=== PATIENT | female | born 1945 | race Caucasian/White ===

== ENCOUNTER → 2016-12-18 | Outpatient (REF) | payer MEDICARE | LOC: M LABNEURO 13:03 | PROVIDERS: ATTEND Internal Medicine | DX: R30.0 Dysuria (principal) ==

== ENCOUNTER → 2017-01-29 | Outpatient (REF) | payer MEDICARE ==
[2017-01-29 15:57] LABS: CALCIUM LEVEL 9.6 MG/DL (8.8-10.2)
== END ==
LOC: M LABNEURO 10:25
PROVIDERS: ATTEND Physician Assistant Medical
DX: M81.8 Other osteoporosis without current pathological fracture (principal); E55.9 Vitamin D deficiency, unspecified

== ENCOUNTER → 2017-03-27 | Outpatient (CLI) | payer MEDICARE ==
[2017-03-27 12:34] LABS: ABG pH (ARTERIAL) 7.471 UNITS (7.350-7.450)
[2017-03-27 12:36] LABS: ABG BASE EXCESS 1.4 (-2.0-2.0); ABG HCO3 24.5 MEQ/L (22.0-26.0); ABG PARTIAL PRESSURE CO2 34.3 mmHg (35.0-45.0); ABG PARTIAL PRESSURE O2 117.6 mmHg (75.0-100.0); ABG STANDARD HCO3 25.7 MEQ/L (22.0-26.0); ABG TOTAL CO2 25.5 MEQ/L (23.0-31.0)
== END ==
LOC: M LAB 12:04
PROVIDERS: ATTEND Internal Medicine Pulmonary Disease
DX: R94.2 Abnormal results of pulmonary function studies (principal)

== ENCOUNTER → 2017-04-12 | Outpatient (REF) | payer MEDICARE ==
[2017-04-12 14:59] LABS: BLOOD UREA NITROGEN 24 MG/DL (7-18); CREATININE FOR GFR 0.73 MG/DL (0.55-1.02); GLOMERULAR FILTRATION RATE > 60.0 (>39)
== END ==
LOC: M LABNEURO 13:24
PROVIDERS: ATTEND Psychiatry & Neurology Neurology
DX: G35 Multiple sclerosis (principal)

== ENCOUNTER → 2017-04-18 | Outpatient (REF) | payer MEDICARE | LOC: M LAB REF 12:47 | PROVIDERS: ATTEND Internal Medicine | DX: N39.0 Urinary tract infection, site not specified (principal) ==

== ENCOUNTER → 2017-05-07 | Outpatient (REF) | payer MEDICARE ==
[2017-05-07 14:31] LABS: CALCIUM LEVEL 10.1 MG/DL (8.8-10.2)
== END ==
LOC: M LABNEURO 13:28
PROVIDERS: ATTEND Physician Assistant Medical
DX: M81.8 Other osteoporosis without current pathological fracture (principal); E55.9 Vitamin D deficiency, unspecified

== ENCOUNTER → 2017-07-17 | Outpatient (REF) | payer MEDICARE | LOC: M LAB REF 17:21 | PROVIDERS: ATTEND Nurse Practitioner Family | DX: N39.0 Urinary tract infection, site not specified (principal) ==

== ENCOUNTER → 2017-07-20 | Outpatient (REF) | payer MEDICARE | LOC: M LAB REF 15:03 | PROVIDERS: ATTEND Nurse Practitioner Family | DX: N76.0 Acute vaginitis (principal); J02.9 Acute pharyngitis, unspecified ==

== ENCOUNTER → 2017-08-06 | Outpatient (REF) | payer MEDICARE | LOC: M LAB REF 10:35 | PROVIDERS: ATTEND Nurse Practitioner Family | DX: N76.0 Acute vaginitis (principal) ==

== ENCOUNTER → 2017-08-07 | Outpatient (REF) | payer MEDICARE | LOC: M LAB REF 09:51 | PROVIDERS: ATTEND Nurse Practitioner Family | DX: R19.7 Diarrhea, unspecified (principal) ==

== ENCOUNTER → 2017-10-17 | Outpatient (CLI) | payer MEDICARE ==
[2017-10-17 17:56] LABS: BASO % 0.7 % (0.0-1.0); EOS # 0.1 10^3/uL (0.0-0.50); EOS % 2.3 % (0.0-3.0); IMMATURE GRANULOCYTE % 0.2 % (0-0); LYMPH # 2.3 10^3/uL (1.5-4.5); LYMPH % 39.9 % (24.0-44.0); MEAN CORPUSCULAR HEMOGLOBIN 32.8 pg (27.0-33.0); MEAN CORPUSCULAR HGB CONC 32.9 g/dl (32.0-36.5); MEAN CORPUSCULAR VOLUME 99.8 fl (80.0-96.0); MONO # 0.4 10^3/uL (0.0-0.8); MONO % 7.7 % (0.0-5.0); NEUTROPHILS # 2.8 10^3/uL (1.8-7.7); NEUTROPHILS % 49.2 % (36.0-66.0); PLATELET COUNT, AUTOMATED 266 10^3/uL (150-450); RED CELL DISTRIBUTION WIDTH 13.2 % (11.5-14.5); WHITE BLOOD COUNT 5.7 10^3/uL (4.0-10.0)
[2017-10-17 19:49] LABS: BLOOD UREA NITROGEN 20 MG/DL (7-18); CREATININE FOR GFR 0.66 MG/DL (0.55-1.02); GLOMERULAR FILTRATION RATE > 60.0 (>39)
== END ==
LOC: M LABNEURO 11:35
PROVIDERS: ATTEND Psychiatry & Neurology Neurology
DX: I10 Essential (primary) hypertension (principal)

== ENCOUNTER → 2018-01-28 | Outpatient (REF) | payer MEDICARE | LOC: M LAB REF 11:52 | DX: N76.89 Other specified inflammation of vagina and vulva (principal) | CPT/HCPCS: 87205 ==

== ENCOUNTER → 2018-03-01 | Outpatient (REF) | payer MEDICARE ==
[2018-03-01 18:30] LABS: APPEARANCE, URINE HAZY (CLEAR); BACTERIA, URINE AUTO NEGATIVE (NEGATIVE); BILIRUBIN, URINE AUTO NEGATIVE (NEGATIVE); BLOOD, URINE BLOOD NEGATIVE (NEGATIVE); COLOR, URINE YELLOW (YELLOW); GLUCOSE, URINE (UA) AUTO NEGATIVE (NEGATIVE); KETONE, URINE AUTO NEGATIVE (NEGATIVE); LEUKOCYTE ESTERASE, URINE AUTO NEGATIVE (NEGATIVE); MUCUS, URINE SMALL (NEGATIVE); NITRITE, URINE AUTO NEGATIVE (NEGATIVE); PROTEIN, URINE AUTO NEGATIVE (NEGATIVE); RBC, URINE AUTO 1 /HPF (0-3); SPECIFIC GRAVITY URINE AUTO 1.008 (1.002-1.035); SQUAMOUS EPITHELIAL CELL UR AU 8 /HPF (0-6); UROBILINOGEN, URINE AUTO 0.2 mg/dL (0.0-2.0); WBC, URINE AUTO 1 /HPF (0-3)
== END ==
LOC: M LAB REF 16:14
DX: N39.0 Urinary tract infection, site not specified (principal)
CPT/HCPCS: 81001

== ENCOUNTER → 2018-03-11 | Outpatient (REF) | payer MEDICARE ==
[2018-03-11 19:22] LABS: CHLAMYDIA DNA AMPLIFICATION NEGATIVE (NEGATIVE); GC DNA AMPLIFICATION NEGATIVE (NEGATIVE)
== END ==
LOC: M LAB REF 16:25
DX: N76.0 Acute vaginitis (principal); Z11.3 Encounter for screening for infections with a predominantly sexual mode of transmission
CPT/HCPCS: 87591

== ENCOUNTER → 2018-03-15 | Outpatient (REF) | payer MEDICARE ==
[2018-03-15 13:22] LABS: BASO % 0.8 % (0.0-1.0); EOS # 0.1 10^3/uL (0.0-0.50); HEMATOCRIT 39.8 % (36.0-47.0); HEMOGLOBIN 13.2 g/dl (12.0-15.5); IMMATURE GRANULOCYTE % 0.2 % (0-3.0); LYMPH # 1.7 10^3/uL (1.5-4.5); LYMPH % 35.3 % (24.0-44.0); MEAN CORPUSCULAR HEMOGLOBIN 32.3 pg (27.0-33.0); MEAN CORPUSCULAR HGB CONC 33.2 g/dl (32.0-36.5); MEAN CORPUSCULAR VOLUME 97.3 fl (80.0-96.0); MONO # 0.4 10^3/uL (0.0-0.8); MONO % 7.4 % (0.0-5.0); NEUTROPHILS # 2.7 10^3/uL (1.8-7.7); NEUTROPHILS % 55.3 % (36.0-66.0); PLATELET COUNT, AUTOMATED 284 10^3/uL (150-450); RED BLOOD COUNT 4.09 10^6/uL (4.00-5.40); RED CELL DISTRIBUTION WIDTH 12.7 % (11.5-14.5); WHITE BLOOD COUNT 4.8 10^3/uL (4.0-10.0)
[2018-03-15 13:26] LABS: APPEARANCE, URINE CLEAR (CLEAR); BACTERIA, URINE AUTO NEGATIVE (NEGATIVE); BILIRUBIN, URINE AUTO NEGATIVE (NEGATIVE); BLOOD, URINE BLOOD NEGATIVE (NEGATIVE); COLOR, URINE YELLOW (YELLOW); GLUCOSE, URINE (UA) AUTO NEGATIVE (NEGATIVE); KETONE, URINE AUTO NEGATIVE (NEGATIVE); LEUKOCYTE ESTERASE, URINE AUTO NEGATIVE (NEGATIVE); NITRITE, URINE AUTO NEGATIVE (NEGATIVE); PROTEIN, URINE AUTO NEGATIVE (NEGATIVE); RBC, URINE AUTO 1 /HPF (0-3); SPECIFIC GRAVITY URINE AUTO 1.011 (1.002-1.035); SQUAMOUS EPITHELIAL CELL UR AU 1 /HPF (0-6); UROBILINOGEN, URINE AUTO 0.2 mg/dL (0.0-2.0); WBC, URINE AUTO 0 /HPF (0-3)
[2018-03-15 13:37] LABS: ALBUMIN 4.1 GM/DL (3.2-5.2); ALBUMIN/GLOBULIN RATIO 1.32 (1.00-1.93); ALKALINE PHOSPHATASE 107 U/L (45-117); ALT/SGPT 18 U/L (12-78); ANION GAP 7 MEQ/L (8-16); AST/SGOT 13 U/L (7-37); BILIRUBIN,TOTAL 0.6 MG/DL (0.2-1.0); BLOOD UREA NITROGEN 20 MG/DL (7-18); CALCIUM LEVEL 9.5 MG/DL (8.8-10.2); CARBON DIOXIDE LEVEL 27 MEQ/L (21-32); CHLORIDE LEVEL 104 MEQ/L (98-107); CREATININE FOR GFR 0.63 MG/DL (0.55-1.30); GLOMERULAR FILTRATION RATE > 60.0 (>39); GLUCOSE, FASTING 103 MG/DL (70-100); POTASSIUM SERUM 4.5 MEQ/L (3.5-5.1); SODIUM LEVEL 138 MEQ/L (136-145); TOTAL PROTEIN 7.2 GM/DL (6.4-8.2)
== END ==
LOC: M LABNEURO 10:25
DX: G35 Multiple sclerosis (principal)
CPT/HCPCS: 80053

== ENCOUNTER 2018-03-27 16:07 | Outpatient (CLI) | payer MEDICARE ==
[2018-03-27] MEDS: methylPREDNISolone 1,000 MG, VIAL MATE ADAPTER 1 EACH in D5W 250 ML IV (16:36)
== END 2018-03-27 18:00 | disposition home or self-care (01) ==
LOC: M INFU 16:07
DX: G35 Multiple sclerosis (principal); K21.9 Gastro-esophageal reflux disease without esophagitis; K44.9 Diaphragmatic hernia without obstruction or gangrene; I10 Essential (primary) hypertension; E78.00 Pure hypercholesterolemia, unspecified; I48.91 Unspecified atrial fibrillation; G47.30 Sleep apnea, unspecified; Z79.899 Other long term (current) drug therapy; Z88.0 Allergy status to penicillin; Z88.5 Allergy status to narcotic agent; Z88.8 Allergy status to other drugs, medicaments and biological substances; Z90.711 Acquired absence of uterus with remaining cervical stump; Z87.442 Personal history of urinary calculi; Z90.49 Acquired absence of other specified parts of digestive tract
CPT/HCPCS: J2930

== ENCOUNTER 2018-03-28 14:52 | Outpatient (CLI) | payer MEDICARE ==
[2018-03-28] MEDS: methylPREDNISolone 1,000 MG, VIAL MATE ADAPTER 1 EACH in D5W 250 ML IV (15:26)
== END 2018-03-28 16:40 | disposition home or self-care (01) ==
LOC: M INFU 14:52
DX: G35 Multiple sclerosis (principal); I48.91 Unspecified atrial fibrillation; I10 Essential (primary) hypertension; E78.00 Pure hypercholesterolemia, unspecified; G47.30 Sleep apnea, unspecified; K21.9 Gastro-esophageal reflux disease without esophagitis; K44.9 Diaphragmatic hernia without obstruction or gangrene; Z79.899 Other long term (current) drug therapy; Z88.0 Allergy status to penicillin; Z88.5 Allergy status to narcotic agent; Z88.8 Allergy status to other drugs, medicaments and biological substances; Z90.710 Acquired absence of both cervix and uterus; Z90.49 Acquired absence of other specified parts of digestive tract
CPT/HCPCS: J2930

== ENCOUNTER 2018-03-29 11:54 | Outpatient (CLI) | payer MEDICARE ==
[2018-03-29] MEDS: methylPREDNISolone 1,000 MG, VIAL MATE ADAPTER 1 EACH in D5W 250 ML IV (12:14)
== END 2018-03-29 13:25 | disposition home or self-care (01) ==
LOC: M INFU 11:54
DX: G35 Multiple sclerosis (principal); I10 Essential (primary) hypertension; E78.00 Pure hypercholesterolemia, unspecified; G47.30 Sleep apnea, unspecified; I48.91 Unspecified atrial fibrillation; K21.9 Gastro-esophageal reflux disease without esophagitis; K44.9 Diaphragmatic hernia without obstruction or gangrene; Z79.899 Other long term (current) drug therapy; Z88.0 Allergy status to penicillin; Z88.8 Allergy status to other drugs, medicaments and biological substances; Z88.1 Allergy status to other antibiotic agents; Z88.5 Allergy status to narcotic agent; Z90.710 Acquired absence of both cervix and uterus; Z90.49 Acquired absence of other specified parts of digestive tract; Z90.10 Acquired absence of unspecified breast and nipple
CPT/HCPCS: J2930

== ENCOUNTER 2018-03-30 09:39 | Outpatient (CLI) | payer MEDICARE ==
[2018-03-30] MEDS: methylPREDNISolone 1,000 MG, VIAL MATE ADAPTER 1 EACH in D5W 250 ML IV (10:00)
== END 2018-03-30 11:20 | disposition home or self-care (01) ==
LOC: M OPCLI4PR 09:39 → M PED 09:41 → M OPCLI4PR 11:20
DX: G35 Multiple sclerosis (principal)
CPT/HCPCS: J2930

== ENCOUNTER 2018-03-30 19:33 | Emergency (ER) | payer MEDICARE ==
[2018-03-30 20:29] LABS: BASO % 0.1 % (0.0-1.0); HEMATOCRIT 38.3 % (36.0-47.0); HEMOGLOBIN 12.9 g/dl (12.0-15.5); IMMATURE GRANULOCYTE % 0.9 % (0-3.0); LYMPH # 0.5 10^3/uL (1.5-4.5); LYMPH % 4.6 % (24.0-44.0); MEAN CORPUSCULAR HEMOGLOBIN 32.5 pg (27.0-33.0); MEAN CORPUSCULAR HGB CONC 33.7 g/dl (32.0-36.5); MEAN CORPUSCULAR VOLUME 96.5 fl (80.0-96.0); MONO # 0.1 10^3/uL (0.0-0.8); MONO % 1.1 % (0.0-5.0); NEUTROPHILS # 10.7 10^3/uL (1.8-7.7); NEUTROPHILS % 93.3 % (36.0-66.0); PLATELET COUNT, AUTOMATED 248 10^3/uL (150-450); RED BLOOD COUNT 3.97 10^6/uL (4.00-5.40); WHITE BLOOD COUNT 11.4 10^3/uL (4.0-10.0)
[2018-03-30 20:47] LABS: ANION GAP 9 MEQ/L (8-16); BLOOD UREA NITROGEN 28 MG/DL (7-18); CALCIUM LEVEL 9.2 MG/DL (8.8-10.2); CARBON DIOXIDE LEVEL 26 MEQ/L (21-32); CHLORIDE LEVEL 107 MEQ/L (98-107); CPK CREATINE PHOSPHOKINASE 46 U/L (26-192); GLOMERULAR FILTRATION RATE > 60.0 (>39); GLUCOSE, FASTING 186 MG/DL (70-100); POTASSIUM SERUM 4.1 MEQ/L (3.5-5.1); SODIUM LEVEL 142 MEQ/L (136-145); TROPONIN I < 0.02 NG/ML (< 0.10)
[2018-03-30 20:48] LABS: CK-MB VALUE MASS 2.5 NG/ML (<3.6); MB/CK RELATIVE INDEX 5.43 (< OR =4)
[2018-03-30] MEDS: VERAPAMIL HCL 5 MG/2 ML VIAL IV (20:56)
[2018-03-30] MEDS: NS 1,000 ML IV (20:57)
[2018-03-30 21:02] LABS: INR 1.72; PROTHROMBIN TIME 20.7 SECONDS (12.4-14.5)
[2018-03-30 21:05] LABS: ALBUMIN 3.7 GM/DL (3.2-5.2); ALBUMIN/GLOBULIN RATIO 1.09 (1.00-1.93); ALKALINE PHOSPHATASE 96 U/L (45-117); ALT/SGPT 41 U/L (12-78); AST/SGOT 24 U/L (7-37); BILIRUBIN,DIRECT 0.1 MG/DL (0.0-0.2); BILIRUBIN,TOTAL 0.4 MG/DL (0.2-1.0); TOTAL PROTEIN 7.1 GM/DL (6.4-8.2)
== END 2018-03-30 22:08 | disposition home or self-care (01) ==
LOC: M ED 19:33
DX: I48.91 Unspecified atrial fibrillation (principal); F41.9 Anxiety disorder, unspecified; G35 Multiple sclerosis; Z79.01 Long term (current) use of anticoagulants; Z98.890 Other specified postprocedural states; Z79.899 Other long term (current) drug therapy; Z79.51 Long term (current) use of inhaled steroids; Z82.49 Family history of ischemic heart disease and other diseases of the circulatory system; Z88.5 Allergy status to narcotic agent; Z88.8 Allergy status to other drugs, medicaments and biological substances; Z88.0 Allergy status to penicillin; Z88.2 Allergy status to sulfonamides; Z88.1 Allergy status to other antibiotic agents
CPT/HCPCS: 71045

== ENCOUNTER 2018-04-05 19:39 | Emergency (ER) | payer MEDICARE ==
[2018-04-05 21:19] LABS: BASO % 0.1 % (0.0-1.0); EOS # 0.1 10^3/uL (0.0-0.50); EOS % 0.8 % (0.0-3.0); HEMATOCRIT 43.8 % (36.0-47.0); HEMOGLOBIN 14.8 g/dl (12.0-15.5); IMMATURE GRANULOCYTE % 0.6 % (0-3.0); LYMPH # 1.9 10^3/uL (1.5-4.5); LYMPH % 17.7 % (24.0-44.0); MEAN CORPUSCULAR HEMOGLOBIN 32.3 pg (27.0-33.0); MEAN CORPUSCULAR HGB CONC 33.8 g/dl (32.0-36.5); MEAN CORPUSCULAR VOLUME 95.6 fl (80.0-96.0); MONO # 0.4 10^3/uL (0.0-0.8); NEUTROPHILS # 8.1 10^3/uL (1.8-7.7); NEUTROPHILS % 76.8 % (36.0-66.0); PLATELET COUNT, AUTOMATED 291 10^3/uL (150-450); RED BLOOD COUNT 4.58 10^6/uL (4.00-5.40); RED CELL DISTRIBUTION WIDTH 13.1 % (11.5-14.5); WHITE BLOOD COUNT 10.6 10^3/uL (4.0-10.0)
[2018-04-05 21:40] LABS: INR 1.07; PARTIAL THROMBOPLASTIN TIME 25.8 SECONDS (26.8-37.9); PROTHROMBIN TIME 14.1 SECONDS (12.4-14.5)
[2018-04-05 21:42] LABS: ANION GAP 7 MEQ/L (8-16); BLOOD UREA NITROGEN 26 MG/DL (7-18); CALCIUM LEVEL 9.6 MG/DL (8.8-10.2); CARBON DIOXIDE LEVEL 29 MEQ/L (21-32); CHLORIDE LEVEL 104 MEQ/L (98-107); CPK CREATINE PHOSPHOKINASE 43 U/L (26-192); CREATININE FOR GFR 0.74 MG/DL (0.55-1.30); FREE T4 1.32 NG/DL (0.76-1.46); GLOMERULAR FILTRATION RATE > 60.0 (>39); GLUCOSE, FASTING 153 MG/DL (70-100); POTASSIUM SERUM 3.8 MEQ/L (3.5-5.1); SODIUM LEVEL 140 MEQ/L (136-145); TROPONIN I < 0.02 NG/ML (< 0.10)
[2018-04-05 21:48] LABS: CK-MB VALUE MASS 2.3 NG/ML (<3.6); MB/CK RELATIVE INDEX 5.34 (< OR =4); NT-PRO BNP 2028 PG/ML (<125)
[2018-04-06] MEDS: ACETAMINOPHEN TAB 650MG DOSE (2X325MG) PO (00:18)
[2018-04-06] MEDS ORDERED: ISOVUE-370 76% 100ML VIAL (Q9967) As Ordered (00:43)
[2018-04-06 02:13] LABS: CPK CREATINE PHOSPHOKINASE 31 U/L (26-192); MB/CK RELATIVE INDEX 6.45 (< OR =4); TROPONIN I < 0.02 NG/ML (< 0.10)
== END 2018-04-06 02:48 | disposition home or self-care (01) ==
LOC: M ED 04-06 02:48
DX: I48.91 Unspecified atrial fibrillation (principal); I10 Essential (primary) hypertension; R07.9 Chest pain, unspecified; E78.5 Hyperlipidemia, unspecified; G35 Multiple sclerosis; Z85.3 Personal history of malignant neoplasm of breast; Z90.49 Acquired absence of other specified parts of digestive tract; Z90.10 Acquired absence of unspecified breast and nipple; Z82.49 Family history of ischemic heart disease and other diseases of the circulatory system; I51.7 Cardiomegaly; Z79.899 Other long term (current) drug therapy; Z88.5 Allergy status to narcotic agent; Z88.8 Allergy status to other drugs, medicaments and biological substances; Z88.0 Allergy status to penicillin; Z88.2 Allergy status to sulfonamides; Z88.1 Allergy status to other antibiotic agents
CPT/HCPCS: Q9967

== ENCOUNTER → 2018-06-12 | Outpatient (REF) | payer MEDICARE | LOC: M LAB REF 11:35 | DX: R19.7 Diarrhea, unspecified (principal) | CPT/HCPCS: 87507 ==

== ENCOUNTER → 2018-06-19 | Outpatient (REF) | payer MEDICARE ==
[2018-06-19 12:48] LABS: BASO # 0.1 10^3/uL (0.0-0.2); BASO % 0.9 % (0.0-1.0); EOS # 0.2 10^3/uL (0.0-0.50); EOS % 3.3 % (0.0-3.0); HEMATOCRIT 38.7 % (36.0-47.0); HEMOGLOBIN 12.9 g/dl (12.0-15.5); IMMATURE GRANULOCYTE % 0.2 % (0-3.0); LYMPH # 2.7 10^3/uL (1.5-4.5); LYMPH % 47.9 % (24.0-44.0); MEAN CORPUSCULAR HEMOGLOBIN 32.6 pg (27.0-33.0); MEAN CORPUSCULAR HGB CONC 33.3 g/dl (32.0-36.5); MEAN CORPUSCULAR VOLUME 97.7 fl (80.0-96.0); MONO # 0.4 10^3/uL (0.0-0.8); MONO % 7.2 % (0.0-5.0); NEUTROPHILS # 2.3 10^3/uL (1.8-7.7); NEUTROPHILS % 40.5 % (36.0-66.0); PLATELET COUNT, AUTOMATED 231 10^3/uL (150-450); RED BLOOD COUNT 3.96 10^6/uL (4.00-5.40); RED CELL DISTRIBUTION WIDTH 13.4 % (11.5-14.5); WHITE BLOOD COUNT 5.7 10^3/uL (4.0-10.0)
[2018-06-19 13:10] LABS: TOTAL 25(OH) VITAMIN D 21.8 NG/ML (30.0-100.0)
[2018-06-19 13:13] LABS: ALBUMIN 3.8 GM/DL (3.2-5.2); ALBUMIN/GLOBULIN RATIO 1.27 (1.00-1.93); ALKALINE PHOSPHATASE 95 U/L (45-117); ALT/SGPT 21 U/L (12-78); ANION GAP 10 MEQ/L (8-16); AST/SGOT 17 U/L (7-37); BILIRUBIN,TOTAL 0.8 MG/DL (0.2-1.0); BLOOD UREA NITROGEN 22 MG/DL (7-18); CALCIUM LEVEL 9.3 MG/DL (8.8-10.2); CARBON DIOXIDE LEVEL 28 MEQ/L (21-32); CHLORIDE LEVEL 107 MEQ/L (98-107); CHOLESTEROL LEVEL 224 MG/DL (<200); CHOLESTEROL RISK RATIO 1.964 (<5); CREATININE FOR GFR 0.62 MG/DL (0.55-1.30); FERRITIN 39 NG/ML (8-252); FREE T4 1.09 NG/DL (0.76-1.46); GLOMERULAR FILTRATION RATE > 60.0 (>39); GLUCOSE, FASTING 98 MG/DL (70-100); HDL CHOLESTEROL 114 MG/DL (>40); IRON (FE) 94 UG/DL (50-170); LDL CHOLESTEROL 88.2 MG/DL (<100); NON-HDL-C 110 MG/DL; PERCENT SATURATION 26.2 % (13.2-45.0); POTASSIUM SERUM 3.8 MEQ/L (3.5-5.1); SODIUM LEVEL 145 MEQ/L (136-145); THYROID STIMULATING HORMONE 0.965 uIU/ML (0.358-3.740); TOTAL IRON BINDING CAPACITY 359 UG/DL (250-450); TOTAL PROTEIN 6.8 GM/DL (6.4-8.2); TRIGLYCERIDES LEVEL 109 MG/DL (<150)
[2018-06-19 13:35] LABS: ESTIMATED AVERAGE GLUCOSE 117 MG/DL (60-110); HEMOGLOBIN A1c 5.7 %
== END ==
LOC: M LABNEURO 08:13
DX: E78.00 Pure hypercholesterolemia, unspecified (principal); E55.9 Vitamin D deficiency, unspecified; D64.9 Anemia, unspecified; Z79.899 Other long term (current) drug therapy
CPT/HCPCS: 83550

== ENCOUNTER 2018-06-26 07:36 | Day surgery (SDC) | payer MEDICARE ==
[~2018-06-26 07:36] MED LIST: LIDOCAINE 2% INJ 100 MG/5 ML SDV (FOR ANES.) As Ordered; PROPOFOL 200 MG/20 ML VIAL As Ordered
[2018-06-26] MEDS: NS 1,000 ML IV (07:45)
[2018-06-26] MEDS ORDERED: PROPOFOL 200 MG/20 ML VIAL As Ordered (09:41)
== END 2018-06-26 10:30 | disposition home or self-care (01) ==
LOC: M OPP 07:36
DX: Z12.11 Encounter for screening for malignant neoplasm of colon (principal); Z86.010 Personal history of colon polyps; D12.5 Benign neoplasm of sigmoid colon; Z98.0 Intestinal bypass and anastomosis status; K64.0 First degree hemorrhoids; K57.30 Diverticulosis of large intestine without perforation or abscess without bleeding; R11.0 Nausea; K22.8 Other specified diseases of esophagus; K44.9 Diaphragmatic hernia without obstruction or gangrene; K29.70 Gastritis, unspecified, without bleeding; I48.91 Unspecified atrial fibrillation; I10 Essential (primary) hypertension; E78.5 Hyperlipidemia, unspecified; K21.9 Gastro-esophageal reflux disease without esophagitis; R12 Heartburn; M19.90 Unspecified osteoarthritis, unspecified site; R51 Headache; G35 Multiple sclerosis; R42 Dizziness and giddiness; I63.9 Cerebral infarction, unspecified; Z85.3 Personal history of malignant neoplasm of breast; Z92.21 Personal history of antineoplastic chemotherapy; Z90.11 Acquired absence of right breast and nipple; Z87.19 Personal history of other diseases of the digestive system; Z88.5 Allergy status to narcotic agent; Z88.8 Allergy status to other drugs, medicaments and biological substances; Z88.0 Allergy status to penicillin; Z88.2 Allergy status to sulfonamides; Z88.1 Allergy status to other antibiotic agents; Z79.01 Long term (current) use of anticoagulants; Z79.899 Other long term (current) drug therapy
CPT/HCPCS: 45380

== ENCOUNTER 2018-08-08 08:08 | Day surgery (SDC) | payer MEDICARE ==
[~2018-08-08 08:08] MED LIST changes: +ACETAMINOPHEN 325 MG TAB PO; -LIDOCAINE 2% INJ 100 MG/5 ML SDV (FOR ANES.) As Ordered; +MIDAZOLAM INJ 2 MG/2 ML VIAL (J2250) As Ordered; +ONDANSETRON 4MG/2ML VIAL (J2405) As Ordered; -PROPOFOL 200 MG/20 ML VIAL As Ordered; +fentaNYL 100 MCG/2 ML INJECTION (J3010) As Ordered
[2018-08-08] MEDS: PROPARACAINE 0.5% OPHTH SOL 15ML OS (09:38)
[2018-08-08] MEDS: OFLOXACIN 0.3 % (OCUFLOX) OPTH SOL 5ML OS (09:39)
[2018-08-08] MEDS: PHENYLEPHRINE 2.5% OPHTH SOL 2ML OS (09:39)
[2018-08-08] MEDS: TROPICAMIDE 1% OPHTH SOLN 2ML OS (09:39)
[2018-08-08] MEDS: POVIDONE-IODINE 5% OPHTH PREP SOL 30ML As Ordered (09:59)
[2018-08-08] MEDS: BALANCED SALT IRRIGATION SOLUTION 500ML BAG (FOR OR EYE MACHINE) As Ordered (10:03)
[2018-08-08] MEDS: LIDOCAINE 0.75%/EPINEPHRINE 0.025% IN BSS 1ML SYR INTRACAMERAL (OR ONLY) As Ordered (10:10)
[2018-08-08] MEDS: DUOVISC (0.50ML VISCOAT/0.55ML PROVISC) OPHTH KIT As Ordered (10:10)
[2018-08-08] MEDS ORDERED: PROPOFOL 200 MG/20 ML VIAL As Ordered (10:10)
[2018-08-08] MEDS ORDERED: ACETAMINOPHEN 325 MG TAB As Ordered (10:38)
[2018-08-08] MEDS ORDERED: TRIMETHOBENZAMIDE 300 MG CAP PO (10:45)
== END 2018-08-08 10:57 | disposition home or self-care (01) ==
LOC: M SDC 08:08
DX: H25.12 Age-related nuclear cataract, left eye (principal); I10 Essential (primary) hypertension; E78.5 Hyperlipidemia, unspecified; G35 Multiple sclerosis; I48.0 Paroxysmal atrial fibrillation; R11.0 Nausea; M81.0 Age-related osteoporosis without current pathological fracture; R06.00 Dyspnea, unspecified; K59.00 Constipation, unspecified; K44.9 Diaphragmatic hernia without obstruction or gangrene; J30.9 Allergic rhinitis, unspecified; Z88.1 Allergy status to other antibiotic agents; Z88.5 Allergy status to narcotic agent; Z79.899 Other long term (current) drug therapy; Z79.01 Long term (current) use of anticoagulants; Z85.3 Personal history of malignant neoplasm of breast; Z90.710 Acquired absence of both cervix and uterus
CPT/HCPCS: 66984

== ENCOUNTER 2018-09-20 16:02 | Outpatient (CLI) | payer MEDICARE ==
[2018-09-20] MEDS: methylPREDNISolone 1,000 MG, VIAL MATE ADAPTER 1 EACH in D5W 250 ML IV (15:30)
== END 2018-09-20 17:50 | disposition home or self-care (01) ==
LOC: M INFU 16:02
DX: G35 Multiple sclerosis (principal); Z88.0 Allergy status to penicillin; Z88.5 Allergy status to narcotic agent; Z88.8 Allergy status to other drugs, medicaments and biological substances
CPT/HCPCS: J2930

== ENCOUNTER 2018-09-21 09:33 | Outpatient (CLI) | payer MEDICARE ==
[2018-09-21] MEDS: methylPREDNISolone 1,000 MG, VIAL MATE ADAPTER 1 EACH in D5W 250 ML IV (10:15)
== END 2018-09-21 11:30 | disposition home or self-care (01) ==
LOC: M OPCLI4PR 09:33 → M PED 09:42 → M OPCLI4PR 11:30
DX: G35 Multiple sclerosis (principal)
CPT/HCPCS: J2930

== ENCOUNTER 2018-09-22 08:58 | Outpatient (CLI) | payer MEDICARE ==
[2018-09-22] MEDS: methylPREDNISolone 1,000 MG, VIAL MATE ADAPTER 1 EACH in D5W 250 ML IV (10:00)
== END 2018-09-22 12:40 | disposition home or self-care (01) ==
LOC: M OPCLI4PR 08:58 → M MS4PR 09:01 → M OPCLI4PR 12:40
DX: G35 Multiple sclerosis (principal); Z79.899 Other long term (current) drug therapy; Z88.0 Allergy status to penicillin; Z88.5 Allergy status to narcotic agent; Z88.2 Allergy status to sulfonamides; Z88.8 Allergy status to other drugs, medicaments and biological substances
CPT/HCPCS: J2930

== ENCOUNTER → 2018-12-04 | Outpatient (REF) | payer MEDICARE ==
[~2018-12-04] MED LIST changes: -ACETAMINOPHEN 325 MG TAB PO; +ATOR1TAB19 PO; +BIOTCAP PO; +CALCTAB28 PO; +CALCTAB97 PO; +CLAR1TAB2 PO; +COPA20IN SC; +DILT120C82 PO; +DILT30TA PO; +DULO1CAP; +DULO1CAP PO; +ELIQ5TAB PO; +ESTR625TA PO; +FLUTISP; +IRBE150T12 PO; +IRBE300T10 PO; -MIDAZOLAM INJ 2 MG/2 ML VIAL (J2250) As Ordered; -ONDANSETRON 4MG/2ML VIAL (J2405) As Ordered; +PANT40TA3 PO; +PREVINJ2 IM; +PROPOXYPHENE PO; +PROTPAK PO; +SENN8.6T17 PO; +TUMS500C PO; +TYLE325C PO; +TYLE500T78 PO; +VITA-182 PO; +XARE20TA PO; +ZOFR4TAB14 PO; +ZOFR4TAB16 PO; -fentaNYL 100 MCG/2 ML INJECTION (J3010) As Ordered; +solumedrol IV
[2018-12-04 14:08] LABS: HEPATITIS B SURFACE ANTIBODY NEGATIVE (POSITIVE); HEPATITIS B SURFACE ANTIGEN NEGATIVE (NEGATIVE); TOTAL 25(OH) VITAMIN D 26.2 NG/ML (30.0-100.0)
[2018-12-07 09:10] LABS: HEPATITIS B CORE ANTIBODY IGG Negative (Negative); HEPATITIS BE ANTIBODY Negative (Negative)
== END ==
LOC: M LABNEURO 10:35
PROVIDERS: ATTEND Psychiatry & Neurology Neurology
DX: G35 Multiple sclerosis (principal)

== ENCOUNTER → 2018-12-31 | Outpatient (REF) | payer MEDICARE ==
[2018-12-31 13:19] LABS: BASO # 0.1 10^3/uL (0.0-0.2); EOS # 0.1 10^3/uL (0.0-0.50); EOS % 2.1 % (0.0-3.0); HEMATOCRIT 41.2 % (36.0-47.0); HEMOGLOBIN 13.5 g/dl (12.0-15.5); LYMPH # 2.4 10^3/uL (1.5-4.5); LYMPH % 45.7 % (24.0-44.0); MEAN CORPUSCULAR HEMOGLOBIN 32.8 pg (27.0-33.0); MEAN CORPUSCULAR HGB CONC 32.8 g/dl (32.0-36.5); MEAN CORPUSCULAR VOLUME 100.2 fl (80.0-96.0); MONO # 0.5 10^3/uL (0.0-0.8); MONO % 9.2 % (0.0-5.0); NEUTROPHILS # 2.2 10^3/uL (1.8-7.7); NEUTROPHILS % 41.8 % (36.0-66.0); PLATELET COUNT, AUTOMATED 278 10^3/uL (150-450); RED BLOOD COUNT 4.11 10^6/uL (4.00-5.40); WHITE BLOOD COUNT 5.2 10^3/uL (4.0-10.0)
[2018-12-31 13:41] LABS: ALT/SGPT 17 U/L (12-78); BILIRUBIN,TOTAL 0.7 MG/DL (0.2-1.0); BLOOD UREA NITROGEN 26 MG/DL (7-18); CALCIUM LEVEL 9.1 MG/DL (8.8-10.2); CARBON DIOXIDE LEVEL 29 MEQ/L (21-32); CHLORIDE LEVEL 103 MEQ/L (98-107); CREATININE FOR GFR 0.71 MG/DL (0.55-1.30); GLOMERULAR FILTRATION RATE > 60.0 (>39); GLUCOSE, FASTING 107 MG/DL (70-100); POTASSIUM SERUM 4.6 MEQ/L (3.5-5.1); SODIUM LEVEL 137 MEQ/L (136-145)
== END ==
LOC: M LABNEURO 12:51
PROVIDERS: ATTEND Psychiatry & Neurology Neurology
DX: G35 Multiple sclerosis (principal)

== ENCOUNTER 2019-01-09 06:21 | Day surgery (SDC) | payer MEDICARE ==
[~2019-01-09] VITALS: Ht 162.6 cm; Wt 47.4 kg
[2019-01-09] MEDS ORDERED: DUOVISC (0.50ML VISCOAT/0.55ML PROVISC) OPHTH KIT As Ordered ONE (06:37)
[2019-01-09] MEDS ORDERED: LIDOCAINE 0.75%/EPINEPHRINE 0.025% IN BSS 1ML SYR INTRACAMERAL (OR ONLY) As Ordered ONE (06:37)
[2019-01-09] MEDS ORDERED: BALANCED SALT IRRIGATION SOLUTION 500ML BAG (FOR OR EYE MACHINE) As Ordered ONE (06:37)
[2019-01-09] MEDS ORDERED: POVIDONE-IODINE 5% OPHTH PREP SOL 30ML As Ordered ONE (06:37)
[2019-01-09] MEDS ORDERED: OFLOXACIN 0.3 % (OCUFLOX) OPTH SOL 5ML OD ONE (07:00)
[2019-01-09] MEDS ORDERED: PHENYLEPHRINE 2.5% OPHTH SOL 2ML OD ONE (07:00)
[2019-01-09] MEDS ORDERED: PROPARACAINE 0.5% OPHTH SOL 15ML OD ONE (07:00)
[2019-01-09] MEDS ORDERED: TROPICAMIDE 1% OPHTH SOLN 2ML OD ONE (07:00)
[2019-01-09] MEDS ORDERED: MIDAZOLAM INJ 2 MG/2 ML VIAL (J2250) As Ordered ONE (07:09)
[2019-01-09] MEDS ORDERED: fentaNYL 100 MCG/2 ML INJECTION (J3010) As Ordered ONE (07:10)
[2019-01-09 08:27] VITALS: BP 159/85
--- NOTE | 2019-01-10 19:32 | RO ---
DATE OF PROCEDURE: 01/09/2019 PREOPERATIVE DIAGNOSIS: 1. Visually significant nuclear sclerotic cataract right eye. POSTOPERATIVE DIAGNOSIS: 1. Visually significant nuclear sclerotic cataract right eye. PROCEDURE: 1. Cataract extraction with use of phacoemulsification and placement of intraocular lens, AU00T0, 15.0 D, right eye. SURGEON: Fabiano Smith DO MEMBER OF PARLIAMENT: None. ANESTHESIA: Local with monitored anesthesia care (MAC). COMPLICATIONS: None. POSTOPERATIVE CONDITION: Stable. INDICATIONS FOR SURGERY: 1. Blurred vision affecting patients activities of daily living. DESCRIPTION OF PROCEDURE: The patient was seen in the preoperative area and properly identified. The correct operative eye was identified and marked. The patient received topical anesthetic, antibiotics, and topical dilating drops. The patient was then transferred to the operating room. The correct side was re-identified, and a time-out was performed. The eye was prepped and draped in a sterile fashion. The eyelids were isolated with Tegaderm tape, and the lids were held open with an adjustable speculum. A 1.0 mm paracentesis incision was made. Intraocular preservative-free Shugarcaine was then injected into the anterior chamber. Viscoelastic was then injected into the anterior chamber through the paracentesis. Using a 2.4 mm sharp-tipped keratome, the anterior chamber was entered via a temporal clear cornea incision. A continuous curvilinear capsulorrhexis was created with Utrata forceps. Hydrodissection was performed with balanced salt solution (BSS) on a blunt cannula until the nucleus was able to rotate freely. The crystalline lens was phacoemulsified and aspirated. Irrigation/aspiration was used to remove the cortical material. Cohesive viscoelastic was placed into the capsular bag to deepen it. The implant was placed into the capsular bag and allowed to unfold. Placement was confirmed by visualizing the anterior capsulorrhexis. Irrigation/aspiration was used to remove the viscoelastic. The clear corneal incision was hydrated with BSS on a blunt cannula. The lens was well positioned. The incisions were then tested for leaks and found to be negative. The eye was then palpated for appropriate pressure and adjusted accordingly with BSS. The eyelid speculum was then carefully removed. A shield was placed over the eye. The patient tolerated the procedure well and was discharged to the recovery unit in a stable condition. NOE
== END 2019-01-09 08:32 | disposition home or self-care (01) ==
LOC: M SDC 06:21
PROVIDERS: ATTEND Ophthalmology
DX: H25.11 Age-related nuclear cataract, right eye (principal); I48.91 Unspecified atrial fibrillation; I10 Essential (primary) hypertension; E78.5 Hyperlipidemia, unspecified; Z85.3 Personal history of malignant neoplasm of breast; Z92.21 Personal history of antineoplastic chemotherapy; Z79.02 Long term (current) use of antithrombotics/antiplatelets; Z88.0 Allergy status to penicillin; Z88.2 Allergy status to sulfonamides; Z88.8 Allergy status to other drugs, medicaments and biological substances; Z79.899 Other long term (current) drug therapy
CPT/HCPCS: 66984; J2250; J3010; V2632

== ENCOUNTER → 2019-07-01 | Outpatient (REF) | payer MEDICARE ==
[~2019-07-01] MED LIST changes: -DILT120C82 PO; +DILT1CAP2 PO; -DULO1CAP; -DULO1CAP PO; +DULO1CAP4; +DULO1CAP4 PO
[2019-07-01 12:28] LABS: APPEARANCE, URINE HAZY (CLEAR); BACTERIA, URINE AUTO 1+ (NEGATIVE); BILIRUBIN, URINE AUTO NEGATIVE (NEGATIVE); BLOOD, URINE BLOOD NEGATIVE (NEGATIVE); COLOR, URINE YELLOW (YELLOW); GLUCOSE, URINE (UA) AUTO NEGATIVE (NEGATIVE); KETONE, URINE AUTO NEGATIVE (NEGATIVE); LEUKOCYTE ESTERASE, URINE AUTO 3+ (NEGATIVE); MUCUS, URINE SMALL (NEGATIVE); NITRITE, URINE AUTO NEGATIVE (NEGATIVE); PROTEIN, URINE AUTO NEGATIVE (NEGATIVE); RBC, URINE AUTO 3 /HPF (0-3); SPECIFIC GRAVITY URINE AUTO 1.027 (1.002-1.035); SQUAMOUS EPITHELIAL CELL UR AU 7 /HPF (0-6); UROBILINOGEN, URINE AUTO 0.2 mg/dL (0.0-2.0); WBC, URINE AUTO 18 /HPF (0-3)
[2019-07-01 12:31] LABS: BASO # 0.1 10^3/uL (0.0-0.2); EOS # 0.1 10^3/uL (0.0-0.50); EOS % 1.8 % (0.0-3.0); HEMATOCRIT 40.5 % (36.0-47.0); HEMOGLOBIN 13.7 g/dl (12.0-15.5); LYMPH # 2.6 10^3/uL (1.5-4.5); LYMPH % 42.6 % (24.0-44.0); MEAN CORPUSCULAR HEMOGLOBIN 33.6 pg (27.0-33.0); MEAN CORPUSCULAR HGB CONC 33.8 g/dl (32.0-36.5); MEAN CORPUSCULAR VOLUME 99.3 fl (80.0-96.0); MONO # 0.5 10^3/uL (0.0-0.8); NEUTROPHILS # 2.8 10^3/uL (1.8-7.7); NEUTROPHILS % 46.3 % (36.0-66.0); PLATELET COUNT, AUTOMATED 255 10^3/uL (150-450); RED BLOOD COUNT 4.08 10^6/uL (4.00-5.40)
== END ==
LOC: M LABDRAW1 08:30
PROVIDERS: ATTEND Psychiatry & Neurology Neurology
DX: N39.0 Urinary tract infection, site not specified (principal)

== ENCOUNTER → 2019-07-03 | Outpatient (REF) | payer MEDICARE ==
[~2019-07-03] MED LIST changes: +AZIT-12 PO; +CART180C3 PO; +HYDR12.55 PO; +K-TA1TAB PO; +ULTR5TAB PO; +[UNRECOGNIZED DRUG - CODE] PO
== END ==
LOC: M LAB REF 12:33
PROVIDERS: ATTEND Internal Medicine
DX: R39.0 Extravasation of urine (principal)

== ENCOUNTER 2019-07-25 13:51 | Outpatient (CLI) | payer MEDICARE ==
[~2019-07-25] VITALS: Ht 160 cm; Wt 48.1 kg
[~2019-07-25 13:51] MED LIST changes: -AZIT-12 PO; -CART180C3 PO; -HYDR12.55 PO; -K-TA1TAB PO; -ULTR5TAB PO; -[UNRECOGNIZED DRUG - CODE] PO
[2019-07-25 14:00] VITALS: BP 160/84
[2019-07-25] MEDS ORDERED: methylPREDNISolone 1,000 MG, VIAL MATE ADAPTER 1 EACH in D5W 250 ML IV ONE (14:00)
[2019-07-25 15:35] VITALS: BP 166/76
== END 2019-07-25 16:00 | disposition home or self-care (01) ==
LOC: M INFU 13:51
PROVIDERS: ATTEND Psychiatry & Neurology Neurology
DX: G35 Multiple sclerosis (principal)
CPT/HCPCS: 96365; J2930

== ENCOUNTER 2019-07-26 09:13 | Outpatient (CLI) | payer MEDICARE ==
[~2019-07-26] VITALS: Ht 162.6 cm; Wt 46.3 kg
[2019-07-26 09:15] VITALS: BP 135/84
[2019-07-26] MEDS ORDERED: methylPREDNISolone 1,000 MG, VIAL MATE ADAPTER 1 EACH in D5W 250 ML IV ONE (11:00)
[2019-07-26 12:30] VITALS: BP 152/85
== END 2019-07-26 12:34 | disposition home or self-care (01) ==
LOC: M OPCLI4PV 09:13 → M MSPAV 09:17 → M OPCLI4PV 12:34
PROVIDERS: ATTEND Psychiatry & Neurology Neurology
DX: G35 Multiple sclerosis (principal)
CPT/HCPCS: 96365; J2930

== ENCOUNTER 2019-07-27 09:02 | Outpatient (CLI) | payer MEDICARE ==
[2019-07-27 09:14] VITALS: BP 139/65
[2019-07-27] MEDS ORDERED: methylPREDNISolone 1,000 MG, VIAL MATE ADAPTER 1 EACH in D5W 250 ML IV ONE (10:00)
[2019-07-27 11:28] VITALS: BP 140/75
== END 2019-07-27 11:20 ==
LOC: M OPCLI4PV 09:02 → M MSPAV 09:04 → M OPCLI4PV 11:20
PROVIDERS: ATTEND Psychiatry & Neurology Neurology
DX: G35 Multiple sclerosis (principal)
CPT/HCPCS: 96365; J2930

== ENCOUNTER 2019-07-28 15:17 | Outpatient (CLI) | payer MEDICARE ==
[~2019-07-28] VITALS: Ht 162.6 cm; Wt 48.2 kg
[~2019-07-28 15:17] MED LIST changes: +methylPREDNISolone 1,000 MG, VIAL MATE ADAPTER 1 EACH in D5W 250 ML IV ONE
[2019-07-28 15:30] VITALS: BP 136/84
[2019-07-28 17:00] VITALS: BP 139/73
== END 2019-07-28 17:00 | disposition home or self-care (01) ==
LOC: M INFU 15:17
PROVIDERS: ATTEND Psychiatry & Neurology Neurology
DX: G35 Multiple sclerosis (principal)
CPT/HCPCS: 96365; J2930

== ENCOUNTER 2019-07-29 15:22 | Outpatient (CLI) | payer MEDICARE ==
[~2019-07-29] VITALS: Ht 162.6 cm; Wt 46.3 kg
[~2019-07-29 15:22] MED LIST changes: -methylPREDNISolone 1,000 MG, VIAL MATE ADAPTER 1 EACH in D5W 250 ML IV ONE
[2019-07-29 15:38] VITALS: BP 154/80
[2019-07-29] MEDS ORDERED: methylPREDNISolone 1,000 MG, VIAL MATE ADAPTER 1 EACH in D5W 250 ML IV ONE (16:00)
[2019-07-29 17:10] VITALS: BP 144/96
== END 2019-07-29 17:15 | disposition home or self-care (01) ==
LOC: M INFU 15:22
PROVIDERS: ATTEND Psychiatry & Neurology Neurology
DX: G35 Multiple sclerosis (principal); Z88.0 Allergy status to penicillin; Z88.1 Allergy status to other antibiotic agents; Z88.2 Allergy status to sulfonamides; Z88.5 Allergy status to narcotic agent; Z88.8 Allergy status to other drugs, medicaments and biological substances
CPT/HCPCS: 96365; J2930

== ENCOUNTER 2019-08-01 05:22 | Emergency (ER) | payer MEDICARE ==
[~2019-08-01] VITALS: Ht 160 cm; Wt 45.5 kg
[2019-08-01 05:52] LABS: HEMATOCRIT 42.4 % (36.0-47.0); HEMOGLOBIN 14.9 g/dl (12.0-15.5); MEAN CORPUSCULAR HEMOGLOBIN 33.8 pg (27.0-33.0); MEAN CORPUSCULAR HGB CONC 35.1 g/dl (32.0-36.5); MEAN CORPUSCULAR VOLUME 96.1 fl (80.0-96.0); RED BLOOD COUNT 4.41 10^6/uL (4.00-5.40); WHITE BLOOD COUNT 10.6 10^3/uL (4.0-10.0)
[2019-08-01 05:53] LABS: BASO % 0.1 % (0.0-1.0); EOS % 0.1 % (0.0-3.0); LYMPH % 16.2 % (24.0-44.0); MONO % 9.6 % (0.0-5.0); NEUTROPHILS # 7.8 10^3/uL (1.5-8.5); NEUTROPHILS % 73.2 % (36.0-66.0); PLATELET COUNT, AUTOMATED 261 10^3/uL (150-450)
[2019-08-01 05:54] LABS: LYMPH # 1.7 10^3/uL (1.5-5.0)
[2019-08-01] MEDS ORDERED: ASPIRIN 81 MG CHEW TABLET PO ONE (06:30)
[2019-08-01 06:38] LABS: BLOOD UREA NITROGEN 20 MG/DL (7-18); CALCIUM LEVEL 9.3 MG/DL (8.8-10.2); CARBON DIOXIDE LEVEL 31 MEQ/L (21-32); CHLORIDE LEVEL 97 MEQ/L (98-107); CK-MB VALUE MASS 1.6 NG/ML (<3.6); CPK CREATINE PHOSPHOKINASE 33 U/L (26-192); CREATININE FOR GFR 0.69 MG/DL (0.55-1.30); GLOMERULAR FILTRATION RATE > 60.0 (>39); GLUCOSE, FASTING 105 MG/DL (70-100); MB/CK RELATIVE INDEX 4.85 (< OR =4); POTASSIUM SERUM 2.8 MEQ/L (3.5-5.1); SODIUM LEVEL 137 MEQ/L (136-145); TROPONIN I < 0.02 NG/ML (< 0.10)
[2019-08-01] MEDS ORDERED: POTASSIUM CHLORIDE 10 MEQ SR TABLET PO ONE (07:00)
--- NOTE | 2019-08-01 07:18 | ECGEPIP ---
[facility] - ED Test Date: 2019-08-01 Pat Name: BOBBI LEZAMA Department: Room: - Gender: Female Metal Checker: marie : 1945 Requested By: MACHO Hale Order Number: [id number] Reading MD: Clint Desai Measurements Intervals [place] Rate: 111 P: [place]: 0 QRS: 75 QRSD: 89 T: -27 QT: 307 QTc: 418 Interpretive Statements ATRIAL FIBRILLATION WITH RAPID VENTRICULAR RESPONSE WITH ABERRANT CONDUCTION OR VENTRICULAR PREMATURE COMPLEXES VOLTAGE CRITERIA FOR LVH NONSPECIFIC ST & T-WAVE ABNORMALITY RATE CHANGE COMPARED TO 04/06/18 Electronically Signed on 08-01-2019 7:17:33 EDT by Clint Desai
--- NOTE | 2019-08-01 08:00 | REP ---
Portable chest x-ray: Single view. History: Chest pain. Comparison chest x-ray: April 05, 2018. Findings: EKG monitoring electrodes are seen. The heart is mildly enlarged. This is unchanged. There is a levoconvex mild curve in the thoracic spine also unchanged. The lungs are well inflated and clear. The pleural angles are sharp. Heart size is normal. No signal bony abnormality is appreciated. Impression: Mild cardiomegaly otherwise no acute disease. Electronically Signed by Jacques Honeycutt MD 08/01/2019 07:51 A
[2019-08-01 08:47] LABS: CK-MB VALUE MASS 2.1 NG/ML (<3.6); CPK CREATINE PHOSPHOKINASE 37 U/L (26-192); MB/CK RELATIVE INDEX 5.68 (< OR =4); TROPONIN I < 0.02 NG/ML (< 0.10)
[2019-08-01] MEDS ORDERED: KCL 10MEQ/100ML SWI (KRUN) 10 MEQ in IV 1 EA IV ONE (09:30)
[2019-08-01] MEDS ORDERED: ACETAMINOPHEN TAB 650MG DOSE (2X325MG) As Ordered ONE (10:43)
[2019-08-01] MEDS ORDERED: ACETAMINOPHEN TAB 650MG DOSE (2X325MG) PO ONE (10:45)
[2019-08-01] MEDS ORDERED: IRBESARTAN 150 MG TAB PO ONE (11:15)
[2019-08-01 11:51] VITALS: BP 134/75
[2019-08-01] MEDS ORDERED: K-TA1TAB PO (11:52)
--- NOTE | 2019-08-02 05:42 | ECGEPIP ---
[facility] - ED Test Date: 2019-08-01 Pat Name: BOBBI LEZAMA Department: Room: - Gender: Female Curriculum Counselor: avldez : 1945 Requested By: Clint Barraza Order Number: [id number] Reading MD: Clint Desai Measurements Intervals [place] Rate: 83 P: [place]: 0 QRS: 69 QRSD: 90 T: 42 QT: 365 QTc: 431 Interpretive Statements ATRIAL FIBRILLATION VOLTAGE CRITERIA FOR LVH NONSPECIFIC ST & T-WAVE ABNORMALITY RATE CHANGE COMPARED TO PRIOR ON SAME DATE Electronically Signed on 08-02-2019 5:42:39 EDT by Clint Desai
== END 2019-08-01 12:06 | disposition home or self-care (01) ==
LOC: M ED 05:22
DX: I48.91 Unspecified atrial fibrillation (principal); G35 Multiple sclerosis; E87.6 Hypokalemia; I25.10 Atherosclerotic heart disease of native coronary artery without angina pectoris; I10 Essential (primary) hypertension; E78.5 Hyperlipidemia, unspecified; Z85.3 Personal history of malignant neoplasm of breast; I51.7 Cardiomegaly; Z79.899 Other long term (current) drug therapy; Z88.0 Allergy status to penicillin; Z88.1 Allergy status to other antibiotic agents; Z88.5 Allergy status to narcotic agent; Z88.8 Allergy status to other drugs, medicaments and biological substances

== ENCOUNTER → 2019-08-08 | Outpatient (REF) | payer MEDICARE ==
[~2019-08-08] MED LIST changes: +K-TA1TAB PO
[2019-08-08 13:45] LABS: BASO % 0.2 % (0.0-1.0); EOS # 0.1 10^3/uL (0.0-0.5); EOS % 0.5 % (0.0-3.0); HEMATOCRIT 40.6 % (36.0-47.0); HEMOGLOBIN 13.3 g/dl (12.0-15.5); LYMPH # 2.7 10^3/uL (1.5-5.0); LYMPH % 28.3 % (24.0-44.0); MEAN CORPUSCULAR HEMOGLOBIN 32.5 pg (27.0-33.0); MEAN CORPUSCULAR HGB CONC 32.8 g/dl (32.0-36.5); MEAN CORPUSCULAR VOLUME 99.3 fl (80.0-96.0); MONO # 0.9 10^3/uL (0.0-0.8); MONO % 9.6 % (0.0-5.0); NEUTROPHILS # 5.8 10^3/uL (1.5-8.5); NEUTROPHILS % 60.8 % (36.0-66.0); PLATELET COUNT, AUTOMATED 286 10^3/uL (150-450); RED BLOOD COUNT 4.09 10^6/uL (4.00-5.40); WHITE BLOOD COUNT 9.5 10^3/uL (4.0-10.0)
[2019-08-08 14:00] LABS: ALBUMIN 3.7 GM/DL (3.2-5.2); ALT/SGPT 26 U/L (12-78); BILIRUBIN,TOTAL 0.7 MG/DL (0.2-1.0); BLOOD UREA NITROGEN 30 MG/DL (7-18); CALCIUM LEVEL 9.8 MG/DL (8.8-10.2); CARBON DIOXIDE LEVEL 27 MEQ/L (21-32); CHLORIDE LEVEL 102 MEQ/L (98-107); CREATININE FOR GFR 0.95 MG/DL (0.55-1.30); GLOMERULAR FILTRATION RATE > 60.0 (>39); GLUCOSE, FASTING 98 MG/DL (70-100); HEPATITIS B SURFACE ANTIBODY NEGATIVE (POSITIVE); POTASSIUM SERUM 5.1 MEQ/L (3.5-5.1); SODIUM LEVEL 138 MEQ/L (136-145); TOTAL PROTEIN 6.4 GM/DL (6.4-8.2)
[2019-08-08 14:08] LABS: HEPATITIS B SURFACE ANTIGEN NEGATIVE (NEGATIVE)
[2019-08-08 14:36] LABS: HEPATITIS B CORE ANTIBODY IGM NEGATIVE (NEGATIVE)
== END ==
LOC: M LABNEURO 08:44
PROVIDERS: ATTEND Psychiatry & Neurology Neurology
DX: Z11.59 Encounter for screening for other viral diseases (principal); Z79.899 Other long term (current) drug therapy

== ENCOUNTER → 2019-09-05 | Outpatient (REF) | payer MEDICARE | LOC: M LAB REF 16:16 | PROVIDERS: ATTEND Internal Medicine | DX: N39.0 Urinary tract infection, site not specified (principal) ==

== ENCOUNTER 2019-09-26 12:51 | Emergency (ER) | payer MEDICARE ==
[~2019-09-26] VITALS: Ht 162.6 cm; Wt 45.5 kg
[2019-09-26 12:51] VITALS: BP 141/76
--- NOTE | 2019-09-26 13:35 | REP ---
CT brain: 09/26/2019. Indication: Head trauma. Comparison: 04/06/2018. Technique: Unenhanced axial CT images of the brain were obtained from skull base to vertex. Findings: There is no acute intracranial hemorrhage, acute cortical infarction, mass effect, hydrocephalus or acute calvarial fracture. Chronic left basal ganglia lacunar infarction is present. Mild diffuse volume loss is noted. There are patchy areas of cerebral hemisphere white matter hypoattenuation most consistent with sequelae of chronic small vessel disease. Impression: No acute intracranial process. Chronic left basal ganglia lacunar infarction. Sequelae of chronic microangiopathic ischemic disease and mild volume loss. Electronically Signed by Neville Ramos DO 09/26/2019 01:26 P
[2019-09-26] MEDS ORDERED: HYDR12.55 PO (13:53)
[2019-09-26] MEDS ORDERED: [UNRECOGNIZED DRUG - CODE] PO (13:53)
== END 2019-09-26 13:55 | disposition home or self-care (01) ==
LOC: M ED 12:51
DX: S09.90XA Unspecified injury of head, initial encounter (principal); W22.8XXA Striking against or struck by other objects, initial encounter; Y92.099 Unspecified place in other non-institutional residence as the place of occurrence of the external cause; Y93.9 Activity, unspecified; Y99.9 Unspecified external cause status; G35 Multiple sclerosis; Z79.01 Long term (current) use of anticoagulants; Z79.899 Other long term (current) drug therapy; Z88.0 Allergy status to penicillin; Z88.1 Allergy status to other antibiotic agents; Z88.5 Allergy status to narcotic agent; Z88.8 Allergy status to other drugs, medicaments and biological substances

== ENCOUNTER → 2019-10-13 | Outpatient (REF) | payer MEDICARE ==
[~2019-10-13] MED LIST changes: +HYDR12.55 PO; +[UNRECOGNIZED DRUG - CODE] PO
[2019-10-13 16:43] LABS: APPEARANCE, URINE HAZY (CLEAR); BACTERIA, URINE AUTO NEGATIVE (NEGATIVE); BILIRUBIN, URINE AUTO NEGATIVE (NEGATIVE); BLOOD, URINE BLOOD 1+ (NEGATIVE); COLOR, URINE YELLOW (YELLOW); GLUCOSE, URINE (UA) AUTO NEGATIVE (NEGATIVE); KETONE, URINE AUTO NEGATIVE (NEGATIVE); LEUKOCYTE ESTERASE, URINE AUTO 1+ (NEGATIVE); MUCUS, URINE SMALL (NEGATIVE); NITRITE, URINE AUTO NEGATIVE (NEGATIVE); PROTEIN, URINE AUTO NEGATIVE (NEGATIVE); RBC, URINE AUTO 2 /HPF (0-3); SQUAMOUS EPITHELIAL CELL UR AU 3 /HPF (0-6); UROBILINOGEN, URINE AUTO 0.2 mg/dL (0.0-2.0); WBC, URINE AUTO 12 /HPF (0-3)
[2019-10-13 16:50] LABS: BASO # 0.1 10^3/uL (0.0-0.2); BASO % 0.9 % (0.0-1.0); EOS # 0.1 10^3/uL (0.0-0.5); EOS % 0.8 % (0.0-3.0); HEMATOCRIT 39.4 % (36.0-47.0); HEMOGLOBIN 13.1 g/dl (12.0-15.5); LYMPH # 1.1 10^3/uL (1.5-5.0); MEAN CORPUSCULAR HGB CONC 33.2 g/dl (32.0-36.5); MEAN CORPUSCULAR VOLUME 99.2 fl (80.0-96.0); MONO # 0.7 10^3/uL (0.0-0.8); MONO % 10.7 % (0.0-5.0); NEUTROPHILS # 4.7 10^3/uL (1.5-8.5); NEUTROPHILS % 71.3 % (36.0-66.0); PLATELET COUNT, AUTOMATED 294 10^3/uL (150-450); RED BLOOD COUNT 3.97 10^6/uL (4.00-5.40); WHITE BLOOD COUNT 6.6 10^3/uL (4.0-10.0)
[2019-10-13 17:10] LABS: ALBUMIN 4.1 GM/DL (3.2-5.2); ALT/SGPT 31 U/L (12-78); BILIRUBIN,TOTAL 0.6 MG/DL (0.2-1.0); BLOOD UREA NITROGEN 20 MG/DL (7-18); CARBON DIOXIDE LEVEL 33 MEQ/L (21-32); CHLORIDE LEVEL 100 MEQ/L (98-107); CREATININE FOR GFR 0.81 MG/DL (0.55-1.30); GLOMERULAR FILTRATION RATE > 60.0 (>39); GLUCOSE, FASTING 110 MG/DL (70-100); POTASSIUM SERUM 3.9 MEQ/L (3.5-5.1); RHEUMATOID FACTOR QUANT < 10.0 IU/ML (<15.0); SODIUM LEVEL 139 MEQ/L (136-145); TOTAL PROTEIN 7.5 GM/DL (6.4-8.2)
[2019-10-13 19:15] LABS: ERYTHROCYTE SEDIMENTATION RATE 10 mm/hr (0-30)
[2019-10-15 14:07] LABS: ANTINUCLEAR ANTIBODIES DIRECT Negative (Negative)
== END ==
LOC: M LABNEURO 15:32
PROVIDERS: ATTEND Psychiatry & Neurology Neurology
DX: G35 Multiple sclerosis (principal); N39.0 Urinary tract infection, site not specified

== ENCOUNTER → 2019-10-21 | Outpatient (REF) | payer MEDICARE | LOC: M LAB REF 13:49 | PROVIDERS: ATTEND Internal Medicine | DX: N39.0 Urinary tract infection, site not specified (principal) ==

== ENCOUNTER 2019-11-11 10:43 | Emergency (ER) | payer MEDICARE ==
[~2019-11-11] VITALS: Ht 162.6 cm; Wt 20.7 kg
[2019-11-11] MEDS ORDERED: CART180C3 PO (10:57)
[2019-11-11] MEDS ORDERED: AZIT-12 PO (10:57)
[2019-11-11] MEDS ORDERED: ULTR5TAB PO (11:24)
--- NOTE | 2019-11-11 12:00 | REP ---
Clinical: Dyspnea . Comparison: 11/10/2019 . Technique: PA and lateral. Findings: The mediastinum and cardiac silhouette are normal. The lung montero are clear and without acute consolidation, effusion, or pneumothorax. The skeletal structures are intact and normal. Impression: 1. No acute cardiopulmonary process. Electronically Signed by Mark Simmons MD 11/11/2019 11:51 A
[2019-11-11 12:21] LABS: BASO % 0.8 % (0.0-1.0); HEMATOCRIT 36.4 % (36.0-47.0); HEMOGLOBIN 12.3 g/dl (12.0-15.5); LYMPH # 1.1 10^3/uL (1.5-5.0); LYMPH % 26.3 % (24.0-44.0); MEAN CORPUSCULAR HEMOGLOBIN 32.7 pg (27.0-33.0); MEAN CORPUSCULAR HGB CONC 33.8 g/dl (32.0-36.5); MEAN CORPUSCULAR VOLUME 96.8 fl (80.0-96.0); MONO # 0.4 10^3/uL (0.0-0.8); MONO % 9.8 % (0.0-5.0); NEUTROPHILS # 2.5 10^3/uL (1.5-8.5); NEUTROPHILS % 61.8 % (36.0-66.0); PLATELET COUNT, AUTOMATED 241 10^3/uL (150-450); RED BLOOD COUNT 3.76 10^6/uL (4.00-5.40)
[2019-11-11 12:46] LABS: ALBUMIN 3.7 GM/DL (3.2-5.2); ALT/SGPT 18 U/L (12-78); BILIRUBIN,DIRECT 0.2 MG/DL (0.0-0.2); BILIRUBIN,TOTAL 0.5 MG/DL (0.2-1.0); BLOOD UREA NITROGEN 33 MG/DL (7-18); CALCIUM LEVEL 9.7 MG/DL (8.8-10.2); CARBON DIOXIDE LEVEL 23 MEQ/L (21-32); CHLORIDE LEVEL 103 MEQ/L (98-107); CK-MB VALUE MASS 1.2 NG/ML (<3.6); CPK CREATINE PHOSPHOKINASE 43 U/L (26-192); CREATININE FOR GFR 0.87 MG/DL (0.55-1.30); GLOMERULAR FILTRATION RATE > 60.0 (>39); GLUCOSE, FASTING 99 MG/DL (70-100); LIPASE 162 U/L (73-393); MB/CK RELATIVE INDEX 2.79 (< OR =4); POTASSIUM SERUM 3.9 MEQ/L (3.5-5.1); SODIUM LEVEL 137 MEQ/L (136-145); TOTAL PROTEIN 6.9 GM/DL (6.4-8.2); TROPONIN I < 0.02 NG/ML (< 0.10)
[2019-11-11 16:29] VITALS: BP 145/82
--- NOTE | 2019-11-11 20:28 | ECGEPIP ---
[facility] - ED Test Date: 2019-11-11 Pat Name: BOBBI LEZAMA Department: Room: - Gender: Female Environmental Technician: BRETT : 1945 Requested By: Clint Barraza Order Number: [id number] Reading MD: Clint Desai Measurements Intervals [place] Rate: 86 P: [place]: 0 QRS: 63 QRSD: 81 T: 1 QT: 346 QTc: 415 Interpretive Statements ATRIAL FIBRILLATION MODERATE VOLTAGE CRITERIA FOR LVH, CONSIDER NORMAL VARIANT NONSPECIFIC ST & T-WAVE ABNORMALITY SIMILAR TO 08/01/19 Electronically Signed on 11-11-2019 20:28:36 EST by Clint Desai
== END 2019-11-11 17:05 | disposition home or self-care (01) ==
LOC: M ED 10:43
DX: I48.91 Unspecified atrial fibrillation (principal); J06.9 Acute upper respiratory infection, unspecified; B34.9 Viral infection, unspecified; G35 Multiple sclerosis; Z86.73 Personal history of transient ischemic attack (TIA), and cerebral infarction without residual deficits; Z85.3 Personal history of malignant neoplasm of breast; Z85.038 Personal history of other malignant neoplasm of large intestine; Z79.02 Long term (current) use of antithrombotics/antiplatelets; Z79.899 Other long term (current) drug therapy; Z88.0 Allergy status to penicillin; Z88.1 Allergy status to other antibiotic agents; Z88.5 Allergy status to narcotic agent; Z88.8 Allergy status to other drugs, medicaments and biological substances

== ENCOUNTER → 2019-11-25 | Outpatient (REF) | payer MEDICARE ==
[~2019-11-25] MED LIST changes: +AZIT-12 PO; +CART180C3 PO; +ULTR5TAB PO
[2019-11-25 13:47] LABS: EOS % 0.5 % (0.0-3.0); HEMATOCRIT 38.8 % (36.0-47.0); HEMOGLOBIN 12.5 g/dl (12.0-15.5); LYMPH # 1.1 10^3/uL (1.5-5.0); LYMPH % 28.4 % (24.0-44.0); MEAN CORPUSCULAR HGB CONC 32.2 g/dl (32.0-36.5); MEAN CORPUSCULAR VOLUME 99.2 fl (80.0-96.0); MONO # 0.3 10^3/uL (0.0-0.8); MONO % 7.8 % (0.0-5.0); NEUTROPHILS # 2.5 10^3/uL (1.5-8.5); PLATELET COUNT, AUTOMATED 283 10^3/uL (150-450); RED BLOOD COUNT 3.91 10^6/uL (4.00-5.40)
[2019-11-25 14:22] LABS: BILIRUBIN,TOTAL 0.4 MG/DL (0.2-1.0); CALCIUM LEVEL 9.9 MG/DL (8.8-10.2); CREATININE FOR GFR 0.97 MG/DL (0.55-1.30); GLOMERULAR FILTRATION RATE 59.9 (>39); POTASSIUM SERUM 4.8 MEQ/L (3.5-5.1); TOTAL 25(OH) VITAMIN D 18.7 NG/ML (30.0-100.0); TOTAL PROTEIN 7.3 GM/DL (6.4-8.2)
== END ==
LOC: M LABDRAW1 13:23
PROVIDERS: ATTEND Psychiatry & Neurology Neurology
DX: E55.9 Vitamin D deficiency, unspecified (principal); G35 Multiple sclerosis

== ENCOUNTER → 2019-12-09 | Outpatient (REF) | payer MEDICARE ==
[2019-12-09 15:56] LABS: BASO % 0.5 % (0.0-1.0); EOS % 0.6 % (0.0-3.0); HEMATOCRIT 37.7 % (36.0-47.0); HEMOGLOBIN 12.7 g/dl (12.0-15.5); LYMPH # 1.1 10^3/uL (1.5-5.0); MEAN CORPUSCULAR HEMOGLOBIN 33.2 pg (27.0-33.0); MEAN CORPUSCULAR HGB CONC 33.7 g/dl (32.0-36.5); MEAN CORPUSCULAR VOLUME 98.4 fl (80.0-96.0); MONO # 0.5 10^3/uL (0.0-0.8); MONO % 8.2 % (0.0-5.0); NEUTROPHILS # 4.6 10^3/uL (1.5-8.5); NEUTROPHILS % 73.4 % (36.0-66.0); PLATELET COUNT, AUTOMATED 284 10^3/uL (150-450); RED BLOOD COUNT 3.83 10^6/uL (4.00-5.40); WHITE BLOOD COUNT 6.3 10^3/uL (4.0-10.0)
[2019-12-09 16:05] LABS: APPEARANCE, URINE CLOUDY (CLEAR); BACTERIA, URINE AUTO 1+ (NEGATIVE); BILIRUBIN, URINE AUTO NEGATIVE (NEGATIVE); BLOOD, URINE BLOOD 1+ (NEGATIVE); COLOR, URINE YELLOW (YELLOW); GLUCOSE, URINE (UA) AUTO NEGATIVE (NEGATIVE); KETONE, URINE AUTO NEGATIVE (NEGATIVE); LEUKOCYTE ESTERASE, URINE AUTO 2+ (NEGATIVE); MUCUS, URINE SMALL (NEGATIVE); NITRITE, URINE AUTO NEGATIVE (NEGATIVE); PROTEIN, URINE AUTO 1+ mg/dL (NEGATIVE); RBC, URINE AUTO 12 /HPF (0-3); SPECIFIC GRAVITY URINE AUTO 1.025 (1.002-1.035); SQUAMOUS EPITHELIAL CELL UR AU 18 /HPF (0-6); UROBILINOGEN, URINE AUTO 0.2 mg/dL (0.0-2.0); WBC, URINE AUTO 21 /HPF (0-3)
== END ==
LOC: M LABDRAW1 15:34
PROVIDERS: ATTEND Psychiatry & Neurology Neurology
DX: N39.0 Urinary tract infection, site not specified (principal)

== ENCOUNTER → 2019-12-11 | Outpatient (REF) | payer MEDICARE | LOC: M LAB REF 11:46 | PROVIDERS: ATTEND Internal Medicine | DX: N39.0 Urinary tract infection, site not specified (principal) ==

== ENCOUNTER → 2019-12-16 | Outpatient (REF) | payer MEDICARE ==
[2019-12-16 13:49] LABS: C REACTIVE PROTEIN QUANTITATIV < 0.30 MG/DL (0.00-0.30)
[2019-12-16 13:57] LABS: CORTISOL AM 14.6 UG/DL (4.3-22.4)
[2019-12-18 00:06] LABS: Lyme Disease IgG/IgM Antibodie <0.91 ISR (0.00-0.90); Lyme Disease IgM Ab Quantitati <0.80 index (0.00-0.79)
== END ==
LOC: M LAB REF 12:56
PROVIDERS: ATTEND Internal Medicine
DX: R53.83 Other fatigue (principal); R20.2 Paresthesia of skin

== ENCOUNTER → 2019-12-31 | Outpatient (REF) | payer MEDICARE ==
[~2019-12-31] MED LIST changes: -IRBE150T12 PO; +IRBE150T7 PO; -IRBE300T10 PO; +IRBE300T7 PO
[2019-12-31 13:36] LABS: ALBUMIN 4.2 GM/DL (3.2-5.2); BILIRUBIN,TOTAL 0.8 MG/DL (0.2-1.0); CREATININE FOR GFR 1.21 MG/DL (0.55-1.30); GLOMERULAR FILTRATION RATE 46.4 (>39); TOTAL PROTEIN 7.4 GM/DL (6.4-8.2)
== END ==
LOC: M LABNEURO 10:59
PROVIDERS: ATTEND Internal Medicine Infectious Disease
DX: R10.30 Lower abdominal pain, unspecified (principal)

== ENCOUNTER → 2020-01-20 | Outpatient (REF) | payer MEDICARE | LOC: M LAB REF 12:15 | PROVIDERS: ATTEND Internal Medicine | DX: D48.7 Neoplasm of uncertain behavior of other specified sites (principal); N39.0 Urinary tract infection, site not specified ==

== ENCOUNTER → 2020-02-18 | Outpatient (REF) | payer MEDICARE ==
[2020-02-18 12:47] LABS: AMYLASE 101 U/L (25-115); LIPASE 137 U/L (73-393)
== END ==
LOC: M LAB REF 12:28
PROVIDERS: ATTEND Internal Medicine
DX: I48.91 Unspecified atrial fibrillation (principal); I63.9 Cerebral infarction, unspecified

== ENCOUNTER → 2020-03-11 | Outpatient (REF) | payer MEDICARE | LOC: M LAB REF 16:09 | PROVIDERS: ATTEND Internal Medicine | DX: R06.02 Shortness of breath (principal); G35 Multiple sclerosis ==

== ENCOUNTER 2020-03-30 03:16 | Emergency (ER) | payer MEDICARE ==
[~2020-03-30] VITALS: Ht 162.6 cm; Wt 47.9 kg
[2020-03-30] MEDS ORDERED: GABA-1171 PO (03:35)
[2020-03-30 04:34] LABS: BASO % 0.3 % (0.0-1.0); EOS # 0.1 10^3/uL (0.0-0.5); EOS % 0.9 % (0.0-3.0); HEMATOCRIT 39.6 % (36.0-47.0); HEMOGLOBIN 13.2 g/dl (12.0-15.5); LYMPH # 1.5 10^3/uL (1.5-5.0); LYMPH % 13.5 % (24.0-44.0); MEAN CORPUSCULAR HEMOGLOBIN 32.2 pg (27.0-33.0); MEAN CORPUSCULAR HGB CONC 33.3 g/dl (32.0-36.5); MEAN CORPUSCULAR VOLUME 96.6 fl (80.0-96.0); MONO # 0.7 10^3/uL (0.0-0.8); MONO % 5.9 % (0.0-5.0); PLATELET COUNT, AUTOMATED 288 10^3/uL (150-450); WHITE BLOOD COUNT 11.4 10^3/uL (4.0-10.0)
[2020-03-30 04:44] LABS: BILIRUBIN,DIRECT 0.2 MG/DL (0.0-0.2); BILIRUBIN,TOTAL 0.9 MG/DL (0.2-1.0); TOTAL PROTEIN 7.5 GM/DL (6.4-8.2)
[2020-03-30] MEDS ORDERED: diltiaZEM **CD** 180 MG CAP PO ONE (04:45)
[2020-03-30 06:00] VITALS: BP 156/78
[2020-03-30] MEDS ORDERED: METOPROLOL 5 MG/5 ML VIAL IV ONE (06:00)
--- NOTE | 2020-03-30 08:31 | REP ---
PORTABLE CHEST X-RAY: Single view. HISTORY: Dyspnea and cough. COMPARISON CHEST X-RAY: November 11, 2019. FINDINGS: The patient is rotated slightly to the left. Lungs are well inflated and clear. The pleural angles are sharp. Heart size is mildly enlarged unchanged. Pulmonary vasculature is not increased. There is some diffuse osteopenia. IMPRESSION: Mildly prominent heart. Otherwise no acute disease. Electronically Signed by Jacques Honeycutt MD 03/30/2020 11:24 A
--- NOTE | 2020-03-31 08:18 | ECGEPIP ---
[facility] - ED Test Date: 2020-03-30 Pat Name: BOBBI LEZAMA Department: Room: - Gender: Female Food Service Supervisor: angel : 1945 Requested By: Clint Barraza Order Number: [id number] Reading MD: Clint Desai Measurements Intervals [place] Rate: 117 P: [place]: 0 QRS: 71 QRSD: 76 T: -8 QT: 289 QTc: 404 Interpretive Statements ATRIAL FIBRILLATION WITH RAPID VENTRICULAR RESPONSE WITH OCCASIONAL VENTRICULAR PREMATURE COMPLEXES VOLTAGE CRITERIA FOR LVH NONSPECIFIC ST & T-WAVE ABNORMALITY RATE CHANGE COMPARED TO 11/11/19 Electronically Signed on 03-31-2020 8:17:48 EDT by Clint Desai
== END 2020-03-30 06:19 | disposition home or self-care (01) ==
LOC: M ED 03:16
DX: I48.91 Unspecified atrial fibrillation (principal); G35 Multiple sclerosis; F41.9 Anxiety disorder, unspecified; I49.3 Ventricular premature depolarization; K86.2 Cyst of pancreas; R14.0 Abdominal distension (gaseous); R07.9 Chest pain, unspecified; Z86.73 Personal history of transient ischemic attack (TIA), and cerebral infarction without residual deficits; Z85.3 Personal history of malignant neoplasm of breast; Z85.038 Personal history of other malignant neoplasm of large intestine; Z90.49 Acquired absence of other specified parts of digestive tract; Z88.0 Allergy status to penicillin; Z88.1 Allergy status to other antibiotic agents; Z88.8 Allergy status to other drugs, medicaments and biological substances; Z88.5 Allergy status to narcotic agent; Z88.2 Allergy status to sulfonamides; Z79.899 Other long term (current) drug therapy; Z79.01 Long term (current) use of anticoagulants; Z11.59 Encounter for screening for other viral diseases
CPT/HCPCS: 71045; 80047; 80076; 83605; 83690; 84484; 85025; 87040; 87486; 87581; 87633; 87798; 93005; 93041; 94760; 96374; 99285; C9803; U0003

== ENCOUNTER → 2020-04-05 | Outpatient (CLI) | payer MEDICARE ==
[~2020-04-05] MED LIST changes: +GABA-1171 PO
--- NOTE | 2020-04-05 19:12 | REP ---
COOKIE SWALLOW The procedure was performed under the direct supervision of Dr. Clarke. The procedure was performed with Deyanira Callahan from speech pathology present. 5 ml aliquots of thin, nectar, pudding, mixed fruit, soft and solid consistency barium was administered. There is no evidence of penetration or aspiration. A detailed report of this examination will be provided by speech pathology. 1.9 minutes of fluoroscopy time was utilized for this procedure. Electronically Signed by GILBERTO Nagy 04/05/2020 05:22 P Electronically Signed by Demetri Clarke MD 04/05/2020 07:03 P
== END ==
LOC: M ST 11:21
PROVIDERS: ATTEND Internal Medicine
DX: R13.10 Dysphagia, unspecified (principal); G35 Multiple sclerosis

== ENCOUNTER → 2020-04-19 | Outpatient (CLI) | payer MEDICARE ==
[2020-04-19 12:33] LABS: ABG BASE EXCESS -3.5 (-2.0-2.0); ABG HCO3 20.2 MEQ/L (22.0-26.0); ABG O2 SATURATION 98.4 % (95.0-99.0); ABG PARTIAL PRESSURE O2 108.9 mmHg (75.0-100.0); ABG SITE NOT GIVEN; ABG STANDARD HCO3 21.6 MEQ/L (22.0-26.0); ABG TOTAL CO2 21.1 MEQ/L (23.0-31.0); ABG pH (ARTERIAL) 7.417 UNITS (7.350-7.450)
== END ==
LOC: M LAB 11:42
PROVIDERS: ATTEND Internal Medicine Pulmonary Disease
DX: R94.2 Abnormal results of pulmonary function studies (principal)

== ENCOUNTER 2020-04-21 08:52 | Outpatient (RCR) | payer MEDICARE | END 2020-05-18 | LOC: M ST 08:52 | PROVIDERS: ATTEND Internal Medicine | DX: R13.10 Dysphagia, unspecified (principal); G35 Multiple sclerosis ==

== ENCOUNTER → 2020-04-23 | Outpatient (CLI) | payer MEDICARE ==
[2020-04-23 15:02] LABS: BASO # 0.1 10^3/uL (0.0-0.2); EOS # 0.1 10^3/uL (0.0-0.5); HEMATOCRIT 37.6 % (36.0-47.0); HEMOGLOBIN 12.4 g/dl (12.0-15.5); LYMPH # 1.4 10^3/uL (1.5-5.0); LYMPH % 27.6 % (24.0-44.0); MEAN CORPUSCULAR VOLUME 97.2 fl (80.0-96.0); MONO # 0.5 10^3/uL (0.0-0.8); MONO % 8.9 % (0.0-5.0); NEUTROPHILS # 3.1 10^3/uL (1.5-8.5); NEUTROPHILS % 60.1 % (36.0-66.0); PLATELET COUNT, AUTOMATED 254 10^3/uL (150-450); RED BLOOD COUNT 3.87 10^6/uL (4.00-5.40); WHITE BLOOD COUNT 5.1 10^3/uL (4.0-10.0)
[2020-04-23 15:13] LABS: HEMOGLOBIN A1c 5.6 %
[2020-04-23 15:22] LABS: ERYTHROCYTE SEDIMENTATION RATE 7 mm/hr (0-30)
[2020-04-23 15:30] LABS: ALT/SGPT 19 U/L (12-78); BILIRUBIN,TOTAL 0.6 MG/DL (0.2-1.0); BLOOD UREA NITROGEN 22 MG/DL (7-18); CALCIUM LEVEL 9.2 MG/DL (8.8-10.2); CARBON DIOXIDE LEVEL 25 MEQ/L (21-32); CHLORIDE LEVEL 109 MEQ/L (98-107); CREATININE FOR GFR 0.73 MG/DL (0.55-1.30); FREE T4 1.04 NG/DL (0.76-1.46); GLOMERULAR FILTRATION RATE > 60.0 (>39); GLUCOSE, FASTING 113 MG/DL (70-100); POTASSIUM SERUM 3.4 MEQ/L (3.5-5.1); RHEUMATOID FACTOR QUANT < 10.0 IU/ML (<15.0); SODIUM LEVEL 142 MEQ/L (136-145); TOTAL 25(OH) VITAMIN D 24.1 NG/ML (30.0-100.0); TOTAL PROTEIN 7.3 GM/DL (6.4-8.2); VITAMIN B12 LEVEL 320 PG/ML
[2020-04-23 15:31] LABS: FOLATE 9.9 NG/ML
[2020-04-26 13:56] LABS: ALBUMIN 4.59 GM/DL (3.29-5.55); ALBUMIN % 62.9 % (55.8-66.1); ALPHA-1-GLOBULIN % 4.6 % (2.9-4.9); ALPHA-1-GLOBULINS 0.34 GM/DL (0.17-0.41); ALPHA-2-GLOBULINS 0.73 GM/DL (0.42-0.99); BETA-1-GLOBULINS % 6.8 % (4.7-7.2); BETA-2-GLOBULINS 0.34 GM/DL (0.19-0.55); BETA-2-GLOBULINS % 4.7 % (3.2-6.5)
[2020-05-01 21:26] LABS: ANTI DS-DNA AB Negative (Negative); ANTINUCLEAR ANTIBODIES DIRECT Negative (Negative); Lyme Disease IgG/IgM Antibodie <0.91 ISR (0.00-0.90); Lyme Disease IgM Ab Quantitati <0.80 index (0.00-0.79); RNP ANTIBODIES 0.7 AI (0.0-0.9); SJOGREN'S ANTI SS-A <0.2 AI (0.0-0.9); SJOGREN'S ANTI SS-B <0.2 AI (0.0-0.9); SMITH ANTIBODIES <0.2 AI (0.0-0.9); VITAMIN B1 LEVEL WHOLE BLOOD 79.6 nmol/L (66.5-200.0); VITAMIN B6,PYRIDOXAL PHOSPHATE 4.6 ug/L (2.0-32.8); VITAMIN E(GAMMA TOCOPHEROL) 0.8 mg/L (0.5-4.9)
== END ==
LOC: M LAB 13:59
PROVIDERS: ATTEND Psychiatry & Neurology Neurology
DX: M32.9 Systemic lupus erythematosus, unspecified (principal); E11.40 Type 2 diabetes mellitus with diabetic neuropathy, unspecified; Z79.899 Other long term (current) drug therapy

== ENCOUNTER → 2020-04-26 | Outpatient (CLI) | payer MEDICARE ==
[~2020-04-26] MED LIST changes: +ACET-683 PO; +AMLO1TAB24 PO; +AZEL1SPR3 NARES; +CARD40TA PO; +DILT240C83 PO; -FLUTISP; +FLUTISP NARES; +LORA-622 PO; +MACR100C43 PO; +PANT40TA29 PO; -PANT40TA3 PO; +VITA200020 PO; +[UNRECOGNIZED DRUG - CODE] PO
--- NOTE | 2020-05-01 08:12 | SLEEPCENT ---
DATE OF PROCEDURE: 04/26/2020 ORDERED BY: Dr. Ruiz Nocturnal polysomnography was performed for evaluation of sleep physiology in this patient with a history impaired cognition, insomnia, and nonrestorative sleep, who has a complex past medical history. 6 hours 11 minutes of data were reviewed. There were only 161 minutes of sleep identified. Sleep latency was fairly good at 18.5 minutes. Rapid eye movement (REM) sleep was not achieved. Sleep architecture showed fragmentation and poor progression. Overall sleep efficiency was only 44.2%. The patient's electrocardiogram showed atrial fibrillation with a controlled ventricular response rate of 70 beats per minute. Rate ranged 60-90. EEG showed reasonably normal waveforms for awake and sleep with some coarsening in the background. No focal events were identified. There were 82 respiratory events identified of 10 seconds in duration or greater for an apnea-hypopnea index of 30.6. The events were very frequently central. Central and mixed apneas represented 79 of 82 events. The events were not exclusive to sleep stage nor body posture. Arousals from respiratory events occurred 30.2 times per hour, and oxygen desaturations were seen to 90%. There was some activity in the limb leads, but limb movement arousals were few. 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 Apnea-hypopnea index 30.6. RECOMMENDATION: The patient should be encouraged to return to the sleep disorder center for pressure therapy. Given the complex nature of the patient's apnea, a bilevel device and backup rate may be necessary. In the interim, alcohol and sedative avoidance should be practiced and caution exercised during the operation of motor vehicles.
== END ==
LOC: M SLEEP 20:00
PROVIDERS: ATTEND Internal Medicine Pulmonary Disease
DX: G47.31 Primary central sleep apnea (principal); G47.33 Obstructive sleep apnea (adult) (pediatric); G35 Multiple sclerosis; R94.2 Abnormal results of pulmonary function studies; R06.02 Shortness of breath
CPT/HCPCS: 95810; G0463

== ENCOUNTER → 2020-06-03 | Outpatient (REF) | payer MEDICARE | LOC: M LAB REF 17:03 | PROVIDERS: ATTEND Internal Medicine | DX: R19.7 Diarrhea, unspecified (principal) ==

== ENCOUNTER → 2020-06-08 | Outpatient (REF) | payer MEDICARE | LOC: M LAB REF 17:06 | PROVIDERS: ATTEND Internal Medicine | DX: N39.0 Urinary tract infection, site not specified (principal) ==

== ENCOUNTER → 2020-06-14 | Outpatient (REF) | payer MEDICARE | LOC: M LAB REF 12:31 | PROVIDERS: ATTEND Internal Medicine | DX: R35.0 Frequency of micturition (principal) ==

== ENCOUNTER 2020-07-02 16:27 | Emergency (ER) | payer MEDICARE ==
[~2020-07-02 16:27] MED LIST changes: -ACET-683 PO; -AMLO1TAB24 PO; -AZEL1SPR3 NARES; -CARD40TA PO; -DILT240C83 PO; -LORA-622 PO; -MACR100C43 PO; -VITA200020 PO; -[UNRECOGNIZED DRUG - CODE] PO
[2020-07-02] MEDS ORDERED: KCL 10MEQ IN STERILE WATER 100ML ONE (18:00)
[2020-07-02] MEDS ORDERED: POTASSIUM CHLORIDE 10 MEQ SR TABLET ONE (18:00)
[2020-07-02] MEDS ORDERED: KCL 10MEQ IN STERILE WATER 100ML As Ordered ONE ×2 (18:19→19:40)
[2020-07-02] MEDS ORDERED: POTASSIUM CHLORIDE 10 MEQ SR TABLET As Ordered ONE (18:19)
--- NOTE | 2020-08-04 14:56 | ECGEPIP ---
ATRIAL FIBRILLATION VOLTAGE CRITERIA FOR LVH ST DEVIATION AND MODERATE T-WAVE ABNORMALITY, CONSIDER INFERIOR ISCHEMIA ABNORMAL ECG BASELINE ARTIFACT LIMITS INTERPRETATION SEE SCANNED DOWNTIME REPORT. MTDD
[2020-08-16 12:31] LABS: BASO % 0.9 % (0.0-1.0); EOS # 0.1 10^3/uL (0.0-0.5); EOS % 1.6 % (0.0-3.0); HEMOGLOBIN 12.9 g/dl (12.0-15.5); LYMPH # 1.2 10^3/uL (1.5-5.0); LYMPH % 28.5 % (24.0-44.0); MEAN CORPUSCULAR HEMOGLOBIN 33.3 pg (27.0-33.0); MEAN CORPUSCULAR HGB CONC 34.9 g/dl (32.0-36.5); MEAN CORPUSCULAR VOLUME 95.6 fl (80.0-96.0); MONO # 0.4 10^3/uL (0.0-0.8); MONO % 9.3 % (0.0-5.0); NEUTROPHILS # 2.6 10^3/uL (1.5-8.5); NEUTROPHILS % 59.5 % (36.0-66.0); PLATELET COUNT, AUTOMATED 226 10^3/uL (150-450); RED BLOOD COUNT 3.87 10^6/uL (4.00-5.40); WHITE BLOOD COUNT 4.3 10^3/uL (4.0-10.0)
[2020-08-16 13:36] LABS: INR 2.22; PARTIAL THROMBOPLASTIN TIME 37.8 SECONDS (24.2-38.5); PROTHROMBIN TIME 25.1 SECONDS (12.5-14.3)
== END 2020-07-02 20:50 | disposition home or self-care (01) ==
LOC: M ED 16:27
DX: R20.2 Paresthesia of skin (principal); E87.6 Hypokalemia; J44.9 Chronic obstructive pulmonary disease, unspecified; G35 Multiple sclerosis; I11.9 Hypertensive heart disease without heart failure; I48.91 Unspecified atrial fibrillation; K86.2 Cyst of pancreas; Z85.3 Personal history of malignant neoplasm of breast; Z90.710 Acquired absence of both cervix and uterus; Z88.0 Allergy status to penicillin; Z88.2 Allergy status to sulfonamides; Z88.8 Allergy status to other drugs, medicaments and biological substances; Z79.899 Other long term (current) drug therapy

== ENCOUNTER → 2020-07-12 | Outpatient (CLI) | payer MEDICARE ==
[~2020-07-12] MED LIST changes: +ACET-683 PO; +AMLO1TAB24 PO; +AZEL1SPR3 NARES; +CARD40TA PO; +DILT240C83 PO; +LORA-622 PO; +MACR100C43 PO; +PROHANCE 279.3MG/ML 15ML VIAL As Ordered ONE; +VITA200020 PO; +[UNRECOGNIZED DRUG - CODE] PO
--- NOTE | 2020-08-10 12:31 | REP ---
MRI ABDOMEN AND PANCREAS WITHOUT AND WITH INTRAVENOUS (IV) GADOLINIUM HISTORY: Pancreatic cyst. COMPARISON: Made with prior MRI studies from [facility] dated 04/14/2020 and 01/14/2020. TECHNIQUE: Axial and coronal T1 and T2-weighted scans include spin echo, fast spin echo, in and out of phase, and dynamically acquired sequential postcontrast images. GADOLINIUM ENHANCEMENT DOSE: 8 mL of intravenous ProHance. MRI FINDINGS: There is a septated cystic nonenhancing mass in the body of the pancreas, which has been gradually increasing. On CT study from 12/26/2017, it measures 9 mm anteroposterior x 12 mm right to left. On todays exam, it measures 2.9 cm craniocaudal x 2.0 cm medial to lateral x 1.3 cm anterior to posterior. There are several thin septations. No other pancreatic lesion is seen. The main pancreatic duct is slightly prominent, 3 mm. Common bile duct measures 6.5 mm in diameter. I cannot tell if the cystic lesion communicates with the main or accessory pancreatic duct. Dynamically acquired postcontrast images show no abnormal contrast enhancement within the pancreatic lesion. No focal hepatic lesion is appreciated. There is no visible ascites. No renal or adrenal lesion is seen. Spleen is unremarkable. IMPRESSION: Cystic pancreatic lesion with septations, but without contrast enhancement as above. Gradually enlarging over several years. 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 MTDD
== END ==
LOC: M RAD 07:30
PROVIDERS: ATTEND Surgery
DX: D37.8 Neoplasm of uncertain behavior of other specified digestive organs (principal)
CPT/HCPCS: 74183; A9576

== ENCOUNTER → 2020-07-27 | Outpatient (CLI) | payer MEDICARE ==
[~2020-07-27] MED LIST changes: -PROHANCE 279.3MG/ML 15ML VIAL As Ordered ONE
--- NOTE | 2020-07-27 14:28 | REPVR ---
PROCEDURE INFORMATION: Exam: CT Maxillofacial Without Contrast, Sinus Exam date and time: 07/27/2020 2:07 PM Age: 74 years old Clinical indication: Condition or disease; Other: Sinusitis; Additional info: Max sinusitis TECHNIQUE: Imaging protocol: CT Maxillofacial without contrast. Focus on the sinuses. Radiation optimization: All CT scans at this facility use at least one of these dose optimization techniques: automated exposure control; mA and/or kV adjustment per patient size (includes targeted exams where dose is matched to clinical indication); or iterative reconstruction. COMPARISON: No relevant prior studies available. FINDINGS: Frontal sinuses: The right frontal sinus is developmentally hypoplastic. The frontal sinuses and frontal recesses are clear and patent. Ethmoid air cells: Trace left ethmoid mucosal thickening. Sphenoid sinuses: Normal. No air-fluid levels. Maxillary sinuses: Normal. No air-fluid levels. Ostiomeatal units are patent. Orbits: Thinning of the lenses of the globes consistent with prior lens surgery. Nasal cavity/Septum: No nasal cavity masses. There is right bee bullosa. [place] left deviation and spurring of the nasal septum which demonstrates mass effect upon the left inferior turbinate. Soft tissues: Unremarkable. Bones/joints: Unremarkable. IMPRESSION: No evidence of acute or significant chronic sinusitis. Electronically signed by: Elizabeth Kessler On 07/27/2020 14:28:09 PM
== END ==
LOC: M RAD 13:39
PROVIDERS: ATTEND Otolaryngology
DX: J32.0 Chronic maxillary sinusitis (principal)

== ENCOUNTER 2020-08-06 12:13 | Observation (INO) | payer MEDICARE ==
[~2020-08-06] VITALS: Ht 162.6 cm; Wt 41.0 kg
[2020-08-06] VITALS (7 sets, daily range): BP systolic 124–153; BP diastolic 64–74
[~2020-08-06 12:13] MED LIST changes: -ACET-683 PO; -AMLO1TAB24 PO; -AZEL1SPR3 NARES; -CARD40TA PO; -DILT240C83 PO; -LORA-622 PO; -MACR100C43 PO; -VITA200020 PO; -[UNRECOGNIZED DRUG - CODE] PO
--- NOTE | 2020-08-06 12:52 | REPVR ---
PROCEDURE INFORMATION: Exam: CT Head Without Contrast Exam date and time: 08/06/2020 12:23 PM Age: 74 years old Clinical indication: Pain; Headache; Additional info: Headache TECHNIQUE: Imaging protocol: Computed tomography of the head without contrast. Radiation optimization: All CT scans at this facility use at least one of these dose optimization techniques: automated exposure control; mA and/or kV adjustment per patient size (includes targeted exams where dose is matched to clinical indication); or iterative reconstruction. COMPARISON: CT Head without contrast 10/04/2019 10:23 AM FINDINGS: Brain: There is no acute intracranial hemorrhage or mass effect. Mild diffuse volume loss is within the range of normal for patient age. There are small vessel ischemic changes within the periventricular and subcortical white matter, but the normal stinson/white matter delineation is maintained. Chronic lacunar infarcts involve the left basal ganglia. Ventricles: No ventriculomegaly. Bones/joints: Unremarkable. No acute fracture. Paranasal sinuses: Visualized sinuses are unremarkable. No fluid levels. Mastoid air cells: Visualized mastoid air cells are well aerated. Soft tissues: Unremarkable. IMPRESSION: No acute hemorrhage or edema. Electronically signed by: Daija Boone On 08/06/2020 12:51:51 PM
[2020-08-06 13:09] LABS: BASO # 0.1 10^3/uL (0.0-0.2); BASO % 1.1 % (0.0-1.0); EOS # 0.1 10^3/uL (0.0-0.5); HEMATOCRIT 39.4 % (36.0-47.0); HEMOGLOBIN 13.6 g/dl (12.0-15.5); LYMPH # 1.6 10^3/uL (1.5-5.0); LYMPH % 34.2 % (24.0-44.0); MEAN CORPUSCULAR HEMOGLOBIN 33.3 pg (27.0-33.0); MEAN CORPUSCULAR HGB CONC 34.5 g/dl (32.0-36.5); MEAN CORPUSCULAR VOLUME 96.3 fl (80.0-96.0); MONO # 0.4 10^3/uL (0.0-0.8); MONO % 7.7 % (0.0-5.0); NEUTROPHILS # 2.5 10^3/uL (1.5-8.5); NEUTROPHILS % 54.8 % (36.0-66.0); PLATELET COUNT, AUTOMATED 234 10^3/uL (150-450); RED BLOOD COUNT 4.09 10^6/uL (4.00-5.40); WHITE BLOOD COUNT 4.6 10^3/uL (4.0-10.0)
[2020-08-06] MEDS ORDERED: hydrALAZINE 20MG/ML 1ML VIAL (J0360 PER 20MG) IV STA (13:26)
[2020-08-06 13:34] LABS: ALBUMIN 4.4 GM/DL (3.2-5.2); ALT/SGPT 19 U/L (12-78); BILIRUBIN,TOTAL 0.9 MG/DL (0.2-1.0); BLOOD UREA NITROGEN 23 MG/DL (7-18); CARBON DIOXIDE LEVEL 27 MEQ/L (21-32); CHLORIDE LEVEL 101 MEQ/L (98-107); CREATININE FOR GFR 0.69 MG/DL (0.55-1.30); GLOMERULAR FILTRATION RATE > 60.0 (>39); GLUCOSE, FASTING 119 MG/DL (70-100); POTASSIUM SERUM 3.2 MEQ/L (3.5-5.1); SODIUM LEVEL 136 MEQ/L (136-145)
[2020-08-06] MEDS ORDERED: POTASSIUM CHLORIDE 10 MEQ SR TABLET PO ONE (13:45)
[2020-08-06 14:08] LABS: ERYTHROCYTE SEDIMENTATION RATE 7 mm/hr (0-30)
[2020-08-06 14:16] LABS: CK-MB VALUE MASS 1.4 NG/ML (<3.6); CPK CREATINE PHOSPHOKINASE 49 U/L (26-192); FREE T4 1.34 NG/DL (0.76-1.46); MB/CK RELATIVE INDEX 2.86 (< OR =4); TROPONIN I < 0.02 NG/ML (< 0.10)
[2020-08-06 14:39] LABS: ABG BASE EXCESS -0.6 (-2.0-2.0); ABG HCO3 20.4 MEQ/L (22.0-26.0); ABG O2 SATURATION 99.4 % (95.0-99.0); ABG PARTIAL PRESSURE CO2 24.8 mmHg (35.0-45.0); ABG PARTIAL PRESSURE O2 159.3 mmHg (75.0-100.0); ABG TOTAL CO2 21.2 MEQ/L (23.0-31.0); ABG pH (ARTERIAL) 7.533 UNITS (7.350-7.450)
--- NOTE | 2020-08-06 14:42 | REPVR ---
PROCEDURE INFORMATION: Exam: XR Chest, 2 Views Exam date and time: 08/06/2020 2:07 PM Age: 74 years old Clinical indication: Hypertensive; Additional info: Chest pain TECHNIQUE: Imaging protocol: XR of the chest Views: 2 views. COMPARISON: 1. UT - PORTABLE CHEST X-RAY 03/30/2020 4:37 AM 2. CR - Chest, 2 view PA, Lat 11/11/2019 11:46:35 AM FINDINGS: Tubes, catheters and devices: ECG leads/contacts overlie and partially obscure the anatomy. Lungs: No pulmonary consolidation or edema. Pleural space: No pleural effusion. No pneumothorax. Heart/Mediastinum: The cardiac silhouette is moderately diffusely enlarged, similar to the prior examinations. Vasculature: Aortic atherosclerotic calcification. Tortuous thoracic aorta. Bones/joints: No acute osseous abnormality. Soft tissues: Upper abdominal surgical clips. Status post right mastectomy. IMPRESSION: Moderate cardiomegaly. Electronically signed by: Noah Deluna On 08/06/2020 14:42:27 PM
[2020-08-06] MEDS ORDERED: ACET-683 PO (14:49)
[2020-08-06] MEDS ORDERED: DILT240C83 PO (14:49)
[2020-08-06] MEDS ORDERED: IRBE150T7 PO (14:49)
[2020-08-06] MEDS ORDERED: AZEL1SPR3 NARES (14:49)
[2020-08-06] MEDS ORDERED: [UNRECOGNIZED DRUG - CODE] PO (14:49)
[2020-08-06] MEDS ORDERED: CARD40TA PO (14:49)
[2020-08-06] MEDS ORDERED: VITA200020 PO (14:49)
[2020-08-06] MEDS ORDERED: LORA-622 PO (14:50)
[2020-08-06] MEDS ORDERED: hydrOXYzine 25 MG TAB PO ONE (15:00)
[2020-08-06] MEDS ORDERED: FLUTICASONE PROP 0.05% NASAL SPRAY 16 GM (FLONASE) NARES PRN (17:45)
[2020-08-06] MEDS ORDERED: ONDANSETRON 4 MG TAB PO PRN (17:45)
[2020-08-06] MEDS ORDERED: LABETALOL 100MG/20ML VIAL IV PRN (17:45)
[2020-08-06] MEDS ORDERED: LORATADINE 10 MG TAB PO PRN (17:45)
--- NOTE | 2020-08-06 17:45 | HPEPDOC ---
General Date of Admission Aug 06, 2020 at 17:28 Date of Service: Aug 06, 2020 Chief Complaint The patient is a 74-year-old female admitted with a reason for visit of Atrial Fibrillation W Rvr Hypertensive Urgency. Source: Patient Exam Limitations: No limitations Timing/Duration: 4-6 hours Severity: Moderate History of Present Illness Patient is 74 years old female with past medical history of multiple sclerosis, atrial fibrillation, breast cancer, hypertension presented to the hospital with palpitations and high blood pressure. Patient states that today she developed lightheadedness, she check her blood pressure and it was 170/100. Also she checked her pulse and it was rapid. In emergency room patient was found to have atrial fibrillation with rapid ventricular rate and hypertensive urgency with sy stolic blood pressure of 200. CT head was done and it was negative. EKG showed atrial fibrillation with rapid ventricular rate. Patient received hydralazine and diltiazem. Her blood pressure and heart rate was stabilized Home Medications Scheduled Biotin (Biotin) 5,000 Mcg Tab.rapdis, 1 TAB PO DAILY, (Reported) NOON Calcium Cit/Mgox/Vit D3/B6/Min (Calcium Citrate Plus Tablet) 1 Each Tablet, 1 TAB PO DAILY, (Reported) NOON Cholecalciferol (Vitamin D3) (Vitamin D3) 50 Mcg Capsule, 100 MCG PO DAILY, (Reported) Gabapentin (Gabapentin) 100 Mg Capsule, 300 MG PO TID, (Reported) Irbesartan (Irbesartan) 150 Mg Tablet, 150 MG PO BID, (Reported) Pantoprazole Sodium (Pantoprazole Sodium) 40 Mg Tab, 40 MG PO BID, (Reported) Rivaroxaban (Xarelto) 20 Mg Tab, 20 MG PO DAILY, (Reported) @ NOON dilTIAZem HCl (Diltiazem 24Hr Cd) 240 Mg Cap.er.24h, 240 MG PO QHS, (Reported) Scheduled PRN Acetaminophen (Acetaminophen) 500 Mg Tablet, 1,000 MG PO Q6H PRN for PAIN / FEVER, (Reported) Azelastine HCl (Azelastine HCl) 0.1% [place].pump, 1 SPRAY NARES BID PRN for RUNNY NOSE, (Reported) Calcium Carbonate (Tums) 500 Mg Chw, 500 MG PO PRN PRN for HEARTBURN/INDIGESTION, (Reported) Diltiazem HCl (Cardizem) 30 Mg Tablet, 30 MG PO TID PRN for HEART RATE, (Reported) TAKE NEEDED FOR HR > 100 Fluticasone Propionate (Fluticasone Propionate) 50 Mcg/Act Spr, 1 SPRAY NARES BID PRN for NASAL CONGESTION, (Reported) Loratadine (Loratadine) 10 Mg Tablet, 10 MG PO DAILY PRN for ALLERGY SYMPTOMS, (Reported) Ondansetron HCl (Zofran) 4 Mg Tab, 4 MG PO Q6HP PRN for NAUSEA, (Reported) Allergies Coded Allergies: diazepam (Verified Allergy, Severe, TONGUE SWELLS, 08/01/19) Penicillins (Verified Allergy, Intermediate, HIVES, 08/01/19) ciprofloxacin (Verified Allergy, Mild, N/V, DIZZY, 08/01/19) fluoxetine (Verified Adverse Reaction, Intermediate, CRAZY, HYPER, 08/01/19) amoxicillin (Verified Adverse Reaction, Mild, N/V, 08/01/19) clavulanic acid (Verified Adverse Reaction, Mild, N/V, 08/01/19) codeine (Verified Adverse Reaction, Mild, VOMITING, 08/01/19) sulfamethoxazole (Verified Adverse Reaction, Mild, N/V, 08/01/19) tetracycline (Verified Adverse Reaction, Mild, NAUSEA, 08/01/19) trimethoprim (Verified Adverse Reaction, Mild, N/V, 08/01/19) Past Medical History Medical History 1. Atrial fibrillation, complicated by cerebrovascular accident (CVA) March 2017 when noncompliant with anticoagulant therapy. 2. MS, treated with Copaxone. Adverse reactions to high-dose steroids. 3. Breast cancer, right, 1985. Mastectomy and chemotherapy. 4. Hysterectomy with left salpingo-oophorectomy (LSO) secondary to fibroids and ovarian polyps in 1991. 5. Hypertension. 6. Cholecystectomy in 1985. 7. Tubular adenoma status post double colon resection in 2004. 8. Seasonal allergies. 9. G2, P2. 10. Osteoporosis. Forteo has been recommended but on hold because of medical instability. Her last DEXA January showed progression. 11. Dyspnea, felt to be, per pulmonary evaluation, neuromuscular weakness from MS. 12. Constipation per CT 12/26/2017 with colonoscopy 06/26/2018, showing only hyperplastic polyp, diverticulosis, and end-to-end colonic anastomosis appearing healthy. 13. Nausea. Esophagogastroduodenoscopy (EGD) 06/26/2018 showing small hiatal hernia with esophageal biopsy showing mild chronic inflammation and gastritis. No Helicobacter (H) pylori. 14. Hyperlipidemia. Surgical History Breast cancer, right, 1985. Mastectomy and chemotherapy. Cholecystectomy in 1985. Tubular adenoma status post double colon resection in 2004 Family History I personally reviewed family history and found not pertinent Social History * Smoker: Denies Alcohol: Denies Drugs: denies A-FIB/CHADSVASC A-FIB History Current/History of A-Fib/PAF?: Yes Current PO Anticoag Therapy: Yes Review of Systems Constitutional: Denies: Chills, Fever Eyes: Denies: Pain, Vision change ENT: Denies: Head Aches Skin: Denies: Rash, Lesions Pulmonary: Denies: Dyspnea Cardiovascular: Reports: Palpitations; Denies: Chest Pain Gastrointestinal: Denies: Nausea, Vomiting Genitourinary: Denies: Dysuria, Frequency Hematologic: Denies: Bruising Musculoskeletal: Denies: Neck Pain Neurological: Denies: Weakness Psych: Reports: Mood Normal Physical Examination General Exam: Positive: Alert, Cooperative Eye Exam: Positive: PERRLA ENT Exam: Positive: Atraumatic Neck Exam: Positive: Supple; Negative: JVD Chest Exam: Positive: Clear to auscultation Heart Exam: Positive: Irregular Rhythm Telemetry: Positive: Atrial fibrillation Abdomen Exam: Positive: Normal bowel sounds Extremity Exam: Negative: Clubbing, Cyanosis Skin Exam: Positive: Nl turgor and temperature Neuro Exam: Positive: Normal Gait, Strength at 5/5 X4 ext, Cranial Nerves 3-12 NL Psych Exam: Positive: Mental status NL Vital Signs Vital Signs Date Time Temp Pulse Resp B/P (MAP) Pulse Ox O2 Delivery O2 Flow Rate FiO2 08/06/20 16:45 84 18 159/74 (102) 99 Room Air 08/06/20 12:16 97.8 Laboratory Data Labs 24H Laboratory Tests 2 08/06/20 12:23: Immature Granulocyte % (Auto) 0.2, Neutrophils (%) (Auto) 54.8, Lymphocytes (%) (Auto) 34.2, Monocytes (%) (Auto) 7.7H, Eosinophils (%) (Auto) 2.0, Basophils (%) (Auto) 1.1H, Neutrophils # (Auto) 2.5, Lymphocytes # (Auto) 1.6, Monocytes # (Auto) 0.4, Eosinophils # (Auto) 0.1, Basophils # (Auto) 0.1, Nucleated Red Blood Cells % (auto) 0.0, Erythrocyte Sedimentation Rate 7, Anion Gap 8, Glomerular Filtration Rate > 60.0, Calcium Level 10.0, Total Bilirubin 0.9, Aspartate Amino Transf (AST/SGOT) 15, Alanine Aminotransferase (ALT/SGPT) 19, Alkaline Phosphatase 106, Total Creatine Kinase 49, Creatine Kinase MB 1.4, Creatine Kinase MB Relative Index 2.86, Troponin I < 0.02, Total Protein 8.0, Albumin 4.4, Albumin/Globulin Ratio 1.2, Thyroid Stimulating Hormone (TSH) 1.400, Free Thyroxine 1.34 08/06/20 14:27: Blood Gas Bicarbonate Standard 24.0, Arterial Blood pH 7.533H, Arterial Blood Partial Pressure CO2 24.8L, Arterial Blood Partial Pressure O2 159.3H, Arterial Blood Total CO2 21.2L, Arterial Blood HCO3 20.4L, Arterial Blood Base Excess - 0.6, Arterial Blood Oxygen Saturation 99.4H CBC/BMP Laboratory Tests 08/06/20 12:23 Assessment/Plan Patient is 74 years old female with past medical history of multiple sclerosis, atrial fibrillation, breast cancer, hypertension presented to the hospital with palpitations and high blood pressure. Patient states that today she developed lightheadedness, she check her blood pressure and it was 170/100. Also she shravan cked her pulse and it was rapid. In emergency room patient was found to have atrial fibrillation with rapid ventricular rate and hypertensive urgency with systolic blood pressure of 200. CT head was done and it was negative. EKG showed atrial fibrillation with rapid ventricular rate. Patient received hydralazine and diltiazem. Her blood pressure and heart rate was stabilized Problems (1) Hypertensive urgency Status: Acute Problem Text: Labetalol IV when necessary with parameters Continue diltiazem Continue ARB (2) Atrial fibrillation with rapid ventricular response Status: Acute Problem Text: Continue oral targeted anticoagulation Continue diltiazem (3) Multiple sclerosis Status: Acute Problem Text: Follow-up with neurologist in the outpatient settings (4) Hypokalemia Status: Acute Problem Text: Replaced Plan / VTE VTE Prophylaxis Ordered?: Yes FABIANO KAPOOR DO Aug 06, 2020 17:45
[2020-08-06] MEDS: GABAPENTIN 100 MG CAP PO SCH ×2 (21:07→21:10)
[2020-08-06] MEDS: PANTOPRAZOLE 40MG TAB (PROTONIX) PO SCH (21:07)
[2020-08-06] MEDS: ACETAMINOPHEN 500 MG TAB PO PRN (22:50)
[2020-08-07] VITALS (11 sets, daily range): BP systolic 97–151; BP diastolic 58–73
[2020-08-07] MEDS: IRBESARTAN 150MG TAB PO SCH ×2 (00:17→09:45)
[2020-08-07 04:49] LABS: HEMATOCRIT 38.5 % (36.0-47.0); HEMOGLOBIN 12.9 g/dl (12.0-15.5); MEAN CORPUSCULAR HEMOGLOBIN 32.3 pg (27.0-33.0); MEAN CORPUSCULAR HGB CONC 33.5 g/dl (32.0-36.5); MEAN CORPUSCULAR VOLUME 96.5 fl (80.0-96.0); PLATELET COUNT, AUTOMATED 219 10^3/uL (150-450); RED BLOOD COUNT 3.99 10^6/uL (4.00-5.40); WHITE BLOOD COUNT 5.1 10^3/uL (4.0-10.0)
[2020-08-07] MEDS: ACETAMINOPHEN 500 MG TAB PO PRN (04:57)
[2020-08-07 05:00] LABS: ALBUMIN 3.7 GM/DL (3.2-5.2); ALT/SGPT 19 U/L (12-78); BLOOD UREA NITROGEN 17 MG/DL (7-18); CALCIUM LEVEL 9.1 MG/DL (8.8-10.2); CARBON DIOXIDE LEVEL 27 MEQ/L (21-32); CHLORIDE LEVEL 105 MEQ/L (98-107); CREATININE FOR GFR 0.65 MG/DL (0.55-1.30); GLOMERULAR FILTRATION RATE > 60.0 (>39); GLUCOSE, FASTING 85 MG/DL (70-100); MAGNESIUM LEVEL 1.8 MG/DL (1.8-2.4); POTASSIUM SERUM 3.5 MEQ/L (3.5-5.1); SODIUM LEVEL 140 MEQ/L (136-145); TOTAL PROTEIN 6.6 GM/DL (6.4-8.2)
[2020-08-07] MEDS ORDERED: amLODIPine 5 MG TAB PO ONE (09:30)
[2020-08-07] MEDS: PANTOPRAZOLE 40MG TAB (PROTONIX) PO SCH (09:45)
[2020-08-07] MEDS ORDERED: AMLO1TAB24 PO (11:06)
[2020-08-07] MEDS ORDERED: RIVAROXABAN 20 MG TAB (XARELTO) PO SCH (12:00)
--- NOTE | 2020-08-07 12:04 | ECGEPIP ---
[facility] - ED Test Date: 2020-08-06 Pat Name: BOBBI LEZAMA Department: Room: - Gender: Female Integrated Campaign Manager: : 1945 Requested By: BARBIE Bishop Order Number: [id number] Reading MD: Clint Desai Measurements Intervals [place] Rate: 121 P: [place]: 0 QRS: 77 QRSD: 87 T: -76 QT: 247 QTc: 352 Interpretive Statements ATRIAL FIBRILLATION WITH RAPID VENTRICULAR RESPONSE VOLTAGE CRITERIA FOR LVH NSTTW ABNORMALITIES SIMILAR TO 03/30/20 Electronically Signed on 08-07-2020 12:03:32 EDT by Clint Desai
--- NOTE | 2020-08-07 14:24 | DS.PDOC ---
Discharge Summary General Date of Admission Aug 06, 2020 at 17:28 Date of Discharge 08/07/20 Discharge Summary PROCEDURES PERFORMED DURING STAY: [None]. ADMITTING DIAGNOSES: Hypertensive urgency Atrial fibrillation with rapid ventricular response Multiple sclerosis Hypokalemia DISCHARGE DIAGNOSES: Hypertensive urgency Atrial fibrillation with rapid ventricular response Multiple sclerosis Hypokalemi COMPLICATIONS/CHIEF COMPLAINT: Atrial Fibrillation W Rvr Hypertensive Urgency. HISTORY OF PRESENT ILLNESS: Patient is 74 years old female with past medical history of multiple sclerosis, atrial fibrillation, breast cancer, hypertension presented to the hospital with palpitations and high blood pressure. Patient states that today she developed lightheadedness, she check her blood pressure and it was 170/100. Also she checked her pulse and it was rapid. In emergency room patient was found to have atrial fibrillation with rapid ventricular rate and hypertensive urgency with systolic blood pressure of 200. CT head was done and it was negative. EKG showed atrial fibrillation with rapid ventricular rate. Patient received hydralazine and diltiazem. Her blood pressure and heart rate was stabilized HOSPITAL COURSE: During hospital stay following issue addressed (1) Hypertensive urgency Labetalol IV when necessary with parameters Continue diltiazem Continue ARB (2) Atrial fibrillation with rapid ventricular response Continue oral targeted anticoagulation Continue diltiazem (3) Multiple sclerosis Follow-up with neurologist in the outpatient settings (4) Hypokalemia Replaced DISCHARGE MEDICATIONS: Please see below. ALLERGIES: Please see below. PHYSICAL EXAMINATION ON DISCHARGE: VITAL SIGNS: Please see below. General Exam: Positive: Alert, Cooperative Eye Exam: Positive: PERRLA ENT Exam: Positive: Atraumatic Neck Exam: Positive: Supple; Negative: JVD Chest Exam: Positive: Clear to auscultation Heart Exam: Positive: Irregular Rhythm Telemetry: Positive: Atrial fibrillation Abdomen Exam: Positive: Normal bowel sounds Extremity Exam: Negative: Clubbing, Cyanosis Skin Exam: Positive: Nl turgor and temperature Neuro Exam: Positive: Normal Gait, Strength at 5/5 X4 ext, Cranial Nerves 3-12 NL Psych Exam: Positive: Mental status NL LABORATORY DATA: Please see below. PROGNOSIS: fair ACTIVITY: [As tolerated]. DIET: cardiac DISPOSITION: 01 Home, Self-Care. DISCHARGE INSTRUCTIONS: Check blood pressure daily ITEMS TO FOLLOWUP ON ON OUTPATIENT: With fire alarm mechanic and PCP. DISCHARGE CONDITION: [Stable]. TIME SPENT ON DISCHARGE: Greater than 20 minutes. Vital Signs/I&Os Vital Signs Date Time Temp Pulse Resp B/P (MAP) Pulse Ox O2 Delivery O2 Flow Rate FiO2 08/07/20 09:45 151/70 08/07/20 09:44 111 08/07/20 07:22 98.3 18 100 Room Air I&O- Last 24 Hours up to 6 AM 08/07/20 06:00 Intake Total 300 ml Output Total 500 ml Balance -200 ml Laboratory Data Labs 24H Laboratory Tests 2 08/06/20 14:27: Blood Gas Bicarbonate Standard 24.0, Arterial Blood pH 7.533H, Arterial Blood Partial Pressure CO2 24.8L, Arterial Blood Partial Pressure O2 159.3H, Arterial Blood Total CO2 21.2L, Arterial Blood HCO3 20.4L, Arterial Blood Base Excess - 0.6, Arterial Blood Oxygen Saturation 99.4H 08/07/20 04:14: Nucleated Red Blood Cells % (auto) 0.0, Anion Gap 8, Glomerular Filtration Rate > 60.0, Calcium Level 9.1, Magnesium Level 1.8, Total Bilirubin 1.0, Aspartate Amino Transf (AST/SGOT) 17, Alanine Aminotransferase (ALT/SGPT) 19, Alkaline Phosphatase 97, Total Protein 6.6, Albumin 3.7, Albumin/Globulin Ratio 1.3 CBC/BMP Laboratory Tests 08/07/20 04:14 Discharge Medications Scheduled Amlodipine Besylate (Amlodipine Besylate) 5 Mg Tablet, 5 MG PO DAILY Biotin (Biotin) 5,000 Mcg Tab.rapdis, 1 TAB PO DAILY, (Reported) NOON Calcium Cit/Mgox/Vit D3/B6/Min (Calcium Citrate Plus Tablet) 1 Each Tablet, 1 TAB PO DAILY, (Reported) NOON Cholecalciferol (Vitamin D3) (Vitamin D3) 50 Mcg Capsule, 100 MCG PO DAILY, (Reported) Gabapentin (Gabapentin) 100 Mg Capsule, 300 MG PO TID, (Reported) Irbesartan (Irbesartan) 150 Mg Tablet, 150 MG PO BID, (Reported) Pantoprazole Sodium (Pantoprazole Sodium) 40 Mg Tab, 40 MG PO BID, (Reported) Rivaroxaban (Xarelto) 20 Mg Tab, 20 MG PO DAILY, (Reported) @ NOON dilTIAZem HCl (Diltiazem 24Hr Cd) 240 Mg Cap.er.24h, 240 MG PO QHS, (Reported) Scheduled PRN Acetaminophen (Acetaminophen) 500 Mg Tablet, 1,000 MG PO Q6H PRN for PAIN / FEVER, (Reported) Azelastine HCl (Azelastine HCl) 0.1% [place].pump, 1 SPRAY NARES BID PRN for RUNNY NOSE, (Reported) Calcium Carbonate (Tums) 500 Mg Chw, 500 MG PO PRN PRN for HEARTBURN/INDIGESTION, (Reported) Diltiazem HCl (Cardizem) 30 Mg Tablet, 30 MG PO TID PRN for HEART RATE, (Reported) TAKE NEEDED FOR HR > 100 Fluticasone Propionate (Fluticasone Propionate) 50 Mcg/Act Spr, 1 SPRAY NARES B ID PRN for NASAL CONGESTION, (Reported) Loratadine (Loratadine) 10 Mg Tablet, 10 MG PO DAILY PRN for ALLERGY SYMPTOMS, (Reported) Ondansetron HCl (Zofran) 4 Mg Tab, 4 MG PO Q6HP PRN for NAUSEA, (Reported) Allergies Coded Allergies: diazepam (Verified Allergy, Severe, TONGUE SWELLS, 08/01/19) Penicillins (Verified Allergy, Intermediate, HIVES, 08/01/19) ciprofloxacin (Verified Allergy, Mild, N/V, DIZZY, 08/01/19) fluoxetine (Verified Adverse Reaction, Intermediate, CRAZY, HYPER, 08/01/19) amoxicillin (Verified Adverse Reaction, Mild, N/V, 08/01/19) clavulanic acid (Verified Adverse Reaction, Mild, N/V, 08/01/19) codeine (Verified Adverse Reaction, Mild, VOMITING, 08/01/19) sulfamethoxazole (Verified Adverse Reaction, Mild, N/V, 08/01/19) tetracycline (Verified Adverse Reaction, Mild, NAUSEA, 08/01/19) trimethoprim (Verified Adverse Reaction, Mild, N/V, 08/01/19) FABIANO KAPOOR DO Aug 07, 2020 14:24
[2020-08-08] MEDS ORDERED: amLODIPine 5 MG TAB PO SCH (09:00)
== END 2020-08-07 12:06 | disposition home or self-care (01) ==
LOC: M ED 12:13 → M ED INP 17:28 → UNDOADMOB 17:28 → ENRESERV 18:33 → M ICU 20:14
PROVIDERS: ADMIT Internal Medicine; ATTEND Internal Medicine
DX: I16.0 Hypertensive urgency (principal); I48.91 Unspecified atrial fibrillation; I10 Essential (primary) hypertension; G35 Multiple sclerosis; E87.6 Hypokalemia; E78.2 Mixed hyperlipidemia; Z79.01 Long term (current) use of anticoagulants; Z79.899 Other long term (current) drug therapy; Z86.73 Personal history of transient ischemic attack (TIA), and cerebral infarction without residual deficits; Z85.3 Personal history of malignant neoplasm of breast; Z88.0 Allergy status to penicillin; Z88.1 Allergy status to other antibiotic agents; Z88.8 Allergy status to other drugs, medicaments and biological substances; Z88.5 Allergy status to narcotic agent; M81.0 Age-related osteoporosis without current pathological fracture
CPT/HCPCS: 36415; 36600; 70450; 71046; 80053; 82550; 82553; 82803; 83735; 84439; 84443; 84484; 85025; 85027; 85652; 93005; 93041; 96374; 96375; 97161; 99285; G0378; J0360

== ENCOUNTER 2020-08-18 00:04 | Emergency (ER) | payer MEDICARE ==
[~2020-08-18] VITALS: Ht 162.6 cm; Wt 45.5 kg
[~2020-08-18 00:04] MED LIST changes: -MACR100C43 PO
--- NOTE | 2020-08-18 01:20 | REPVR ---
PROCEDURE INFORMATION: Exam: CT Head Without Contrast Exam date and time: 08/18/2020 1:05 AM Age: 74 years old Clinical indication: Other: HTN; Additional info: Htn/neuro SX TECHNIQUE: Imaging protocol: Computed tomography of the head without contrast. Radiation optimization: All CT scans at this facility use at least one of these dose optimization techniques: automated exposure control; mA and/or kV adjustment per patient size (includes targeted exams where dose is matched to clinical indication); or iterative reconstruction. COMPARISON: CT Head without contrast 08/06/2020 12:26 PM FINDINGS: Brain: No intracranial mass, mass effect or midline shift. No acute intracranial hemorrhage. No CT evidence of acute cortical infarct. Punctate remote lacunar infarct, left caudate head. Mild decreased attenuation in periventricular/centrum semiovale white matter. Cerebral ventricles: Ventricles, cisterns, and sulci are normal in size for age. Bones/joints: No calvarial fracture or destructive process. Paranasal sinuses: Imaged paranasal sinuses are normally aerated. Mastoid air cells: Mastoid air cells and middle ear structures are normally aerated. Orbits: Imaged orbits are unremarkable. Soft tissues: No focal extracranial soft tissue swelling. IMPRESSION: No acute or concerning focal intracranial abnormality. Electronically signed by: Rohan Lemos On 08/18/2020 01:20:19 AM
--- NOTE | 2020-08-18 01:21 | REPVR ---
PROCEDURE INFORMATION: Exam: XR Chest, 1 View Exam date and time: 08/18/2020 1:14 AM Age: 74 years old Clinical indication: Other: Chest pain TECHNIQUE: Imaging protocol: XR of the chest Views: 1 view. COMPARISON: CR Chest, 2 view PA, Lat 08/06/2020 1:39 PM FINDINGS: Lungs: Degree of lung inflation is normal. No evidence of pulmonary edema. No focal consolidation or parenchymal lung mass. Pleural space: No pleural effusion or pneumothorax. Heart/Mediastinum: Cardiac silhouette appears normal. No adenopathy or hilar mass. Bones/joints: Osseous structures show no concerning abnormality. IMPRESSION: No acute or focal cardiopulmonary process. Electronically signed by: Rohan Lemos On 08/18/2020 01:20:44 AM
[2020-08-18 01:49] LABS: BASO % 0.8 % (0.0-1.0); EOS # 0.1 10^3/uL (0.0-0.5); EOS % 2.4 % (0.0-3.0); HEMATOCRIT 39.5 % (36.0-47.0); LYMPH # 1.1 10^3/uL (1.5-5.0); LYMPH % 22.4 % (24.0-44.0); MEAN CORPUSCULAR HEMOGLOBIN 32.1 pg (27.0-33.0); MEAN CORPUSCULAR HGB CONC 32.9 g/dl (32.0-36.5); MEAN CORPUSCULAR VOLUME 97.5 fl (80.0-96.0); MONO # 0.4 10^3/uL (0.0-0.8); MONO % 7.9 % (0.0-5.0); NEUTROPHILS # 3.4 10^3/uL (1.5-8.5); NEUTROPHILS % 66.3 % (36.0-66.0); PLATELET COUNT, AUTOMATED 206 10^3/uL (150-450); RED BLOOD COUNT 4.05 10^6/uL (4.00-5.40); WHITE BLOOD COUNT 5.1 10^3/uL (4.0-10.0)
[2020-08-18 02:10] LABS: INR 1.13; PROTHROMBIN TIME 14.8 SECONDS (12.5-14.3)
[2020-08-18 02:16] LABS: ALBUMIN 4.2 GM/DL (3.2-5.2); ALT/SGPT 26 U/L (12-78); BILIRUBIN,DIRECT < 0.1 MG/DL (0.0-0.2); BILIRUBIN,TOTAL 0.6 MG/DL (0.2-1.0); LIPASE 95 U/L (73-393); TOTAL PROTEIN 7.8 GM/DL (6.4-8.2)
[2020-08-18 02:35] LABS: BLOOD UREA NITROGEN 25 MG/DL (7-18); CALCIUM LEVEL 9.7 MG/DL (8.8-10.2); CARBON DIOXIDE LEVEL 24 MEQ/L (21-32); CHLORIDE LEVEL 105 MEQ/L (98-107); CREATININE FOR GFR 0.59 MG/DL (0.55-1.30); GLOMERULAR FILTRATION RATE > 60.0 (>39); GLUCOSE, FASTING 133 MG/DL (70-100); POTASSIUM SERUM 4.4 MEQ/L (3.5-5.1); SODIUM LEVEL 135 MEQ/L (136-145); TROPONIN I < 0.02 NG/ML (< 0.10)
[2020-08-18] MEDS ORDERED: CIPROFLOXACIN 250MG TAB PO ONE (03:45)
[2020-08-18] MEDS ORDERED: MACR100C43 PO (03:50)
[2020-08-18 04:00] VITALS: BP 187/93
[2020-08-18] MEDS ORDERED: NITROFURANTOIN (MACROBID) 100 MG CAP PO ONE (04:00)
--- NOTE | 2020-08-18 07:46 | ECGEPIP ---
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
== END 2020-08-18 04:10 | disposition home or self-care (01) ==
LOC: M ED 00:04
DX: I10 Essential (primary) hypertension (principal); N39.0 Urinary tract infection, site not specified; I48.91 Unspecified atrial fibrillation; G35 Multiple sclerosis; Z79.01 Long term (current) use of anticoagulants; Z79.899 Other long term (current) drug therapy; Z88.0 Allergy status to penicillin; Z88.1 Allergy status to other antibiotic agents; Z88.5 Allergy status to narcotic agent; Z88.8 Allergy status to other drugs, medicaments and biological substances

== ENCOUNTER → 2020-08-18 | Outpatient (REF) | payer MEDICARE ==
[~2020-08-18] MED LIST changes: +ACET-683 PO; +AMLO1TAB24 PO; +AZEL1SPR3 NARES; +CARD40TA PO; +DILT240C83 PO; +LORA-622 PO; +MACR100C43 PO; +VITA200020 PO; +[UNRECOGNIZED DRUG - CODE] PO
== END ==
LOC: M LAB REF 16:59
PROVIDERS: ATTEND Internal Medicine
DX: N39.0 Urinary tract infection, site not specified (principal)

== ENCOUNTER → 2020-08-26 | Outpatient (CLI) | payer MEDICARE ==
[~2020-08-26] MED LIST changes: +MACR100C43 PO
== END ==
LOC: M LABSMTC 09:47
PROVIDERS: ATTEND Internal Medicine Gastroenterology
DX: Z20.828 Contact with and (suspected) exposure to other viral communicable diseases (principal)
CPT/HCPCS: C9803; U0003

== ENCOUNTER → 2020-09-08 | Outpatient (REF) | payer MEDICARE | LOC: M LAB REF 11:28 | PROVIDERS: ATTEND Internal Medicine | DX: R06.00 Dyspnea, unspecified (principal); N39.0 Urinary tract infection, site not specified ==

== ENCOUNTER 2020-09-11 18:10 | Emergency (ER) | payer MEDICARE ==
[~2020-09-11] VITALS: Ht 162.6 cm; Wt 41.8 kg
[2020-09-11] MEDS ORDERED: NS 500 ML IV ONE (18:30)
[2020-09-11 18:46] LABS: BASO % 0.7 % (0.0-1.0); EOS # 0.1 10^3/uL (0.0-0.5); EOS % 0.9 % (0.0-3.0); HEMATOCRIT 37.5 % (36.0-47.0); HEMOGLOBIN 12.3 g/dl (12.0-15.5); LYMPH # 1.3 10^3/uL (1.5-5.0); LYMPH % 22.7 % (24.0-44.0); MEAN CORPUSCULAR HEMOGLOBIN 32.5 pg (27.0-33.0); MEAN CORPUSCULAR HGB CONC 32.8 g/dl (32.0-36.5); MEAN CORPUSCULAR VOLUME 98.9 fl (80.0-96.0); MONO # 0.5 10^3/uL (0.0-0.8); MONO % 7.9 % (0.0-5.0); NEUTROPHILS # 3.8 10^3/uL (1.5-8.5); NEUTROPHILS % 67.4 % (36.0-66.0); PLATELET COUNT, AUTOMATED 229 10^3/uL (150-450); RED BLOOD COUNT 3.79 10^6/uL (4.00-5.40); WHITE BLOOD COUNT 5.7 10^3/uL (4.0-10.0)
--- NOTE | 2020-09-11 18:46 | REP ---
INDICATION: CHEST PAIN COMPARISON: 08/18/2020 TECHNIQUE: Portable AP view of the chest FINDINGS: The mediastinum and cardiac silhouette are stable with cardiomegaly again noted. The lung montero demonstrate stable chronic interstitial changes without acute consolidation, effusion, or pneumothorax. Skeletal structures are intact. IMPRESSION: Chronic stable changes. Stable cardiomegaly. No acute cardiopulmonary process appreciated. <Electronically signed by Mark Simmons > 09/11/20 [id number]
[2020-09-11 18:57] LABS: INR 1.61; PROTHROMBIN TIME 19.5 SECONDS (12.5-14.3)
[2020-09-11 18:58] LABS: PARTIAL THROMBOPLASTIN TIME 32.7 SECONDS (24.2-38.5)
[2020-09-11] MEDS ORDERED: MORPHINE 2 MG/ML 1ML VIAL (J2270) IV PRN (19:15)
[2020-09-11 19:26] LABS: ALBUMIN 4.1 GM/DL (3.2-5.2); ALT/SGPT 26 U/L (12-78); BILIRUBIN,DIRECT 0.2 MG/DL (0.0-0.2); BILIRUBIN,TOTAL 0.9 MG/DL (0.2-1.0); BLOOD UREA NITROGEN 26 MG/DL (7-18); CALCIUM LEVEL 9.3 MG/DL (8.8-10.2); CARBON DIOXIDE LEVEL 25 MEQ/L (21-32); CHLORIDE LEVEL 106 MEQ/L (98-107); CK-MB VALUE MASS 1.4 NG/ML (<3.6); CPK CREATINE PHOSPHOKINASE 64 U/L (26-192); CREATININE FOR GFR 0.66 MG/DL (0.55-1.30); FREE T4 1.35 NG/DL (0.76-1.46); GLOMERULAR FILTRATION RATE > 60.0 (>39); GLUCOSE, FASTING 112 MG/DL (70-100); LIPASE 70 U/L (73-393); MB/CK RELATIVE INDEX 2.19 (< OR =4); NT-PRO BNP 1321 PG/ML (<125); POTASSIUM SERUM 3.8 MEQ/L (3.5-5.1); SODIUM LEVEL 139 MEQ/L (136-145); TOTAL PROTEIN 7.3 GM/DL (6.4-8.2); TROPONIN I < 0.02 NG/ML (< 0.10)
[2020-09-11] MEDS: MORPHINE 2 MG/ML 1ML VIAL (J2270) IV PRN ×2 (19:35→20:18)
[2020-09-11] MEDS ORDERED: ISOVUE-370 76% 100ML VIAL As Ordered ONE ×2 (20:12→20:15)
[2020-09-11] MEDS ORDERED: hydrALAZINE 20MG/ML 1ML VIAL (J0360 PER 20MG) IV ONE (20:15)
--- NOTE | 2020-09-11 20:57 | REPVR ---
PROCEDURE INFORMATION: Exam: CT Angiography Chest With Contrast Exam date and time: 09/11/2020 8:37 PM Age: 74 years old Clinical indication: Chest pain; Radiating; Additional info: Chest pain- radiates to back TECHNIQUE: Imaging protocol: Computed tomographic angiography of the chest with intravenous contrast. 3D rendering (Not supervised by radiologist): MIP and/or 3D reconstructed images were created by the technologist. Radiation optimization: All CT scans at this facility use at least one of these dose optimization techniques: automated exposure control; mA and/or kV adjustment per patient size (includes targeted exams where dose is matched to clinical indication); or iterative reconstruction. Contrast material: ISOVUE 370; Contrast volume: 85 ml; Contrast route: INTRAVENOUS (IV); COMPARISON: CT ANGIO CHEST 04/06/2018 12:47 AM FINDINGS: Pulmonary arteries: Normal. No pulmonary emboli. Aorta: Unremarkable. No aortic aneurysm. No aortic dissection. Lungs: Unremarkable. No consolidation. No masses. Pleural space: Unremarkable. No pneumothorax. No pleural effusion. Heart: Mild cardiomegaly. No pericardial effusion Lymph nodes: Unremarkable. No enlarged lymph nodes. Bones/joints: Unremarkable. No acute fracture. Soft tissues: Unremarkable. IMPRESSION: 1. No acute findings. 2. Mild cardiomegaly. Electronically signed by: Amol Perkins On 09/11/2020 20:57:49 PM
[2020-09-11] MEDS ORDERED: **hydrALAZINE HCL** 25 MG TAB PO ONE (21:00)
--- NOTE | 2020-09-11 21:02 | REPVR ---
PROCEDURE INFORMATION: Exam: CT Head Without Contrast Exam date and time: 09/11/2020 8:37 PM Age: 74 years old Clinical indication: Injury or trauma; Fall; Blunt trauma (contusions or hematomas) TECHNIQUE: Imaging protocol: Computed tomography of the head without contrast. Radiation optimization: All CT scans at this facility use at least one of these dose optimization techniques: automated exposure control; mA and/or kV adjustment per patient size (includes targeted exams where dose is matched to clinical indication); or iterative reconstruction. COMPARISON: CT Head without contrast 08/18/2020 1:01 AM FINDINGS: Brain: There is no evidence of intracranial bleed. There are oval areas of low/CSF density left frontal lobe near the frontal horn of the left lateral ventricle and consistent with small areas of old lacunar infarct. Patchy areas of low density right and left external capsule is consistent with old small lacunar infarcts. Cerebral ventricles: Normal size ventricles. Bones/joints: Unremarkable. No acute fracture. Paranasal sinuses: Clear paranasal sinuses. Mastoid air cells: Clear mastoid air cells. Vasculature: There is calcification of the carotid siphon bilaterally consistent with atherosclerotic changes. Soft tissues: Unremarkable. IMPRESSION: 1. Chronic ischemic changes. 2. No evidence of acute bleed and no evidence of fracture. Electronically signed by: Logan Alejo On 09/11/2020 21:02:59 PM
[2020-09-11 21:04] VITALS: BP 187/82
--- NOTE | 2020-09-11 21:04 | REPVR ---
PROCEDURE INFORMATION: Exam: CT Abdomen And Pelvis With Contrast Exam date and time: 09/11/2020 8:37 PM Age: 74 years old Clinical indication: Abdominal pain; Generalized TECHNIQUE: Imaging protocol: Computed tomography of the abdomen and pelvis with intravenous contrast. Radiation optimization: All CT scans at this facility use at least one of these dose optimization techniques: automated exposure control; mA and/or kV adjustment per patient size (includes targeted exams where dose is matched to clinical indication); or iterative reconstruction. Contrast material: ISOVUE 370; Contrast volume: 85 ml; Contrast route: INTRAVENOUS (IV); COMPARISON: No relevant prior studies available. FINDINGS: Liver: Normal. No mass. Gallbladder and bile ducts: Prior cholecystectomy. No biliary duct dilation. Pancreas: There is a 12 mm cystic area in the uncinate process of the pancreas. No solid pancreatic mass. No pancreatic duct dilation or inflammatory changes. Spleen: Normal. No splenomegaly. Adrenals: Normal. No mass. Kidneys and ureters: Normal. No hydronephrosis. Stomach and bowel: Postoperative changes in the sigmoid colon. No acute inflammatory process or bowel obstruction. Appendix: There has been prior appendectomy. Intraperitoneal space: Unremarkable. No free air. No significant fluid collection. Vasculature: Unremarkable. No abdominal aortic aneurysm. Lymph nodes: Unremarkable. No enlarged lymph nodes. Urinary bladder: Unremarkable as visualized. Reproductive: There has been prior hysterectomy. Bones/joints: There are degenerative changes in the spine and pelvis. Soft tissues: Unremarkable. IMPRESSION: 1. No acute findings. 2. Small cyst in the uncinate process of the pancreas. Consider MRI follow-up if not previously evaluated. Remainder of the pancreas is unremarkable. No signs of pancreatitis. Electronically signed by: Amol Perkins On 09/11/2020 21:04:22 PM
--- NOTE | 2020-09-11 21:16 | REPVR ---
PROCEDURE INFORMATION: Exam: CT Cervical Spine Without Contrast Exam date and time: 09/11/2020 8:37 PM Age: 74 years old Clinical indication: Injury or trauma; Fall; Blunt trauma TECHNIQUE: Imaging protocol: Computed tomography images of the cervical spine without contrast. Radiation optimization: All CT scans at this facility use at least one of these dose optimization techniques: automated exposure control; mA and/or kV adjustment per patient size (includes targeted exams where dose is matched to clinical indication); or iterative reconstruction. COMPARISON: XA Cookie Swallow Mod.Ba Swallow 04/05/2020 11:28 AM FINDINGS: Vertebrae: There is prominent sclerosis, facet hypertrophy and cystic erosive change left C4-C5 facet joint. There is no evidence of fracture. Prominent calcification at the right and left carotid bifurcation but greater on the right. There is mild retrolisthesis C5/C4 on the right. There is no evidence of soft tissue swelling. There is moderate osteophyte formation in the region of the right and left C6 neural foramina. Lungs: Clear apical portions of the lung with pleural thickening. IMPRESSION: 1. No evidence of fracture. 2. Retrolisthesis C5 compared to C4 and severe degenerative and arthritic change of the facet joints on the left. Severe narrowing of the C5-C6 disc space with osteophyte formation and all consistent with degenerative changes. Electronically signed by: Logan Alejo On 09/11/2020 21:15:54 PM
[2020-09-11 21:45] VITALS: BP 157/75
--- NOTE | 2020-09-12 06:37 | ED PDOC ---
Post-Departure Follow-Up ct c spine formal report faxed to dr gurrola for fu Yayo Fuentes MD Sep 12, 2020 06:37
--- NOTE | 2020-09-14 08:53 | ECGEPIP ---
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
== END 2020-09-11 22:10 | disposition home or self-care (01) ==
LOC: EDBD 18:10 → M ED 18:10
DX: I11.9 Hypertensive heart disease without heart failure (principal); R00.2 Palpitations; I48.91 Unspecified atrial fibrillation; E78.5 Hyperlipidemia, unspecified; Z85.3 Personal history of malignant neoplasm of breast; K86.2 Cyst of pancreas; M43.12 Spondylolisthesis, cervical region; M25.78 Osteophyte, vertebrae; Z79.01 Long term (current) use of anticoagulants; Z79.899 Other long term (current) drug therapy; Z88.0 Allergy status to penicillin; Z88.1 Allergy status to other antibiotic agents; Z88.5 Allergy status to narcotic agent; Z88.8 Allergy status to other drugs, medicaments and biological substances
CPT/HCPCS: 70450; 71045; 71275; 72125; 74177; 80048; 80076; 81001; 82550; 82553; 83690; 83880; 84439; 84443; 84484; 85025; 85610; 85730; 87040; 87086; 93005; 93041; 94760; 96361; 96374; 96375; 96376; 99285; J0360; J2270; Q9967

== ENCOUNTER → 2020-09-20 | Outpatient (REF) | payer MEDICARE ==
[2020-09-20 15:55] LABS: PREALBUMIN 36.1 MG/DL (20.0-40.0)
== END ==
LOC: M LAB REF 11:24
PROVIDERS: ATTEND Internal Medicine
DX: D37.9 Neoplasm of uncertain behavior of digestive organ, unspecified (principal)

== ENCOUNTER 2020-09-22 01:57 | Emergency (ER) | payer MEDICARE ==
[~2020-09-22] VITALS: Ht 162.6 cm; Wt 40.9 kg
[2020-09-22 02:45] LABS: BASO % 0.9 % (0.0-1.0); EOS # 0.1 10^3/uL (0.0-0.5); EOS % 2.1 % (0.0-3.0); HEMATOCRIT 33.7 % (36.0-47.0); HEMOGLOBIN 10.9 g/dl (12.0-15.5); LYMPH # 1.8 10^3/uL (1.5-5.0); LYMPH % 39.5 % (24.0-44.0); MEAN CORPUSCULAR HEMOGLOBIN 32.2 pg (27.0-33.0); MEAN CORPUSCULAR HGB CONC 32.3 g/dl (32.0-36.5); MEAN CORPUSCULAR VOLUME 99.7 fl (80.0-96.0); MONO # 0.6 10^3/uL (0.0-0.8); MONO % 13.5 % (0.0-5.0); NEUTROPHILS % 43.8 % (36.0-66.0); PLATELET COUNT, AUTOMATED 231 10^3/uL (150-450); RED BLOOD COUNT 3.38 10^6/uL (4.00-5.40); WHITE BLOOD COUNT 4.7 10^3/uL (4.0-10.0)
[2020-09-22 03:02] LABS: BLOOD UREA NITROGEN 26 MG/DL (7-18); CALCIUM LEVEL 9.6 MG/DL (8.8-10.2); CARBON DIOXIDE LEVEL 27 MEQ/L (21-32); CHLORIDE LEVEL 104 MEQ/L (98-107); CK-MB VALUE MASS 1.7 NG/ML (<3.6); CPK CREATINE PHOSPHOKINASE 41 U/L (26-192); CREATININE FOR GFR 0.58 MG/DL (0.55-1.30); GLOMERULAR FILTRATION RATE > 60.0 (>39); GLUCOSE, FASTING 105 MG/DL (70-100); MB/CK RELATIVE INDEX 4.15 (< OR =4); NT-PRO BNP 1065 PG/ML (<125); POTASSIUM SERUM 3.4 MEQ/L (3.5-5.1); SODIUM LEVEL 138 MEQ/L (136-145); TROPONIN I < 0.02 NG/ML (< 0.10)
--- NOTE | 2020-09-22 03:25 | REPVR ---
PROCEDURE INFORMATION: Exam: XR Chest, 1 View Exam date and time: 09/22/2020 2:56 AM Age: 74 years old Clinical indication: Chest pain TECHNIQUE: Imaging protocol: XR of the chest Views: 1 view. COMPARISON: CR PORTABLE CHEST X-RAY 2020-09-11 18:27 FINDINGS: Lungs: Question COPD. Pleural space: Unremarkable. No pleural effusion. No pneumothorax. Heart/Mediastinum: Cardiomegaly. Bones/joints: Unremarkable. IMPRESSION: No acute abnormality or significant change. Electronically signed by: Roque Chavis On 09/22/2020 03:24:40 AM
[2020-09-22 04:30] VITALS: BP 161/94
--- NOTE | 2020-09-22 18:38 | ECGEPIP ---
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
== END 2020-09-22 04:55 | disposition home or self-care (01) ==
LOC: M ED 01:57
DX: I48.91 Unspecified atrial fibrillation (principal); G35 Multiple sclerosis; R06.00 Dyspnea, unspecified; I25.10 Atherosclerotic heart disease of native coronary artery without angina pectoris; I10 Essential (primary) hypertension; J98.4 Other disorders of lung; Z86.73 Personal history of transient ischemic attack (TIA), and cerebral infarction without residual deficits; Z79.899 Other long term (current) drug therapy; Z88.0 Allergy status to penicillin; Z88.1 Allergy status to other antibiotic agents; Z88.8 Allergy status to other drugs, medicaments and biological substances

== ENCOUNTER → 2021-05-18 | Outpatient (REF) | payer MEDICARE | LOC: M LAB REF 16:26 | PROVIDERS: ATTEND Internal Medicine | DX: R30.0 Dysuria (principal) ==